=== PATIENT | male | born 1945 | race Caucasian/White ===

== ENCOUNTER 2018-05-19 09:46 | Inpatient (IN) | payer MEDICARE, OTHER ==
[2018-05-19] MEDS ORDERED: Ondansetron HCl/PF 4 MG/2 ML Vial ONE ×2 (10:07→10:08)
[2018-05-19] MEDS ORDERED: Morphine 2 MG/ML SYRINGE ONE (10:08)
[2018-05-19 10:15] LABS: #Basophils 0.1 thou/uL (0.0-0.2); #Eosinphils 0.2 thou/uL (0.0-0.7); #Lymphocytes 1.9 thou/uL (1.20-3.40); #Monocytes 0.9 thou/uL (0.11-0.59); #Neutrophils 4.2 thou/uL (1.40-6.50); %Basophils 1.5 % (0.0-1.0); %Eosinophils 2.3 % (0.0-10.0); %Monocytes 12.7 % (0.0-10.0); %Neutrophils 57.6 % (42.0-75.0); Hemoglobin 15.6 g/dL (14.0-18.0); Mean Corpuscular Hemoglobin 31.6 pg (27.0-31.0); Mean Corpuscular Volume 98.7 fL (78.0-98.0); Mean Platelet Volume 8.4 fL (7.4-10.4); Platelet Count 284 thou/uL (130-400); RBC Distribution Width 12.8 % (11.5-14.5); Red Blood Cell (RBC) Count 4.93 mill/uL (4.70-6.10); White Blood Cell (WBC) Count 7.3 thou/uL (4.8-10.8)
[2018-05-19 10:22] LABS: INR-International Normal Ratio 1.5; Prothrombin Time 18.1 SEC (12.0-14.7)
[2018-05-19 10:44] LABS: CKMB 2.8 ng/mL (0-6.6); Troponin I 0.025 ng/mL (< 0.028)
--- NOTE | 2018-05-19 10:47 | RAD ---
CHEST ONE VIEW: History: Cough. Atrial flutter. Hematemesis. Comparison: 08-10-15 FINDINGS: Cardiac silhouette is enlarged. Pulmonary vasculature is engorged with widespread reticular nodular a nd interstitial prominence throughout each lung. Mediastinum is midline with post-operative changes a nd aortic calcification. No lobar consolidation or evidence of pneumothorax. IMPRESSION: 1. Pulmonary vascular congestion. 2. Atherosclerosis. 3. Cardiomegaly. POS: [facility]
[2018-05-19] MEDS ORDERED: ISOVUE-370 76%-LOCM 1 ML ONE (10:49)
[2018-05-19 11:22] LABS: ALT (SGPT) 27 U/L (8-55); AST (SGOT) 43 U/L (5-34); Alkaline Phosphatase 106 U/L (40-150); Anion Gap 12 mmol/L (10-20); BUN (Urea Nitrogen) 20 mg/dL (8.4-25.7); Bilirubin, Total 0.7 mg/dL (0.2-1.2); Calc. Creatinine Clearance 0 mL/min (70-130); Calcium 9.3 mg/dL (7.8-10.44); Carbon Dioxide 24 mmol/L (23-31); Chloride 107 mmol/L (98-107); Estimated GFR-MDRD Greater than 90; Globulin 3.4 g/dL (2.4-3.5); Glucose 105 mg/dL (83-110); Potassium 4.4 mmol/L (3.5-5.1); Protein, Total 7.4 g/dL (5.8-8.1); Sodium 139 mmol/L (136-145)
--- NOTE | 2018-05-19 12:31 | CT ---
CT PULMONARY ANGIOGRMA WITH IV CONTRAST AND 3D POSTPROCESSING: HISTORY: Cough, hemoptysis, patient on Coumadin, chest pain, shortness of breath. FINDINGS: There is good contrast opacification of the pulmonary arterial vasculature without filling defect to suggest pulmonary embolism. Coronary artery calcifications are present. No evidence of aneurysmal d ilatation of the thoracic aorta is seen. No pericardial effusion is identified. There is a tiny left and a small right pleural effusion with adjacent patchy infiltrates in the lower lobes. No pneumoth oraces are seen. The tracheal bronchial tree is patent. There are degenerative changes in the spine . There is right-sided gynecomastia. IMPRESSION: 1. No CT evidence of pulmonary embolism. 2. Bilateral pleural effusions (right larger than left) with lower lobe infiltrates. POS: [facility]
[2018-05-19] MEDS ORDERED: Furosemide 40 MG/4 ML VIAL ONE (12:35)
[2018-05-19] MEDS ORDERED: Enoxaparin Sodium 100 MG/ML SYRINGE ONE (12:35)
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
[2018-05-19 14:01] LABS: Troponin I 0.028 ng/mL (< 0.028)
[2018-05-19 15:06] VITALS: BMI 28.0
[2018-05-19] MEDS ORDERED: Ondansetron ODT 4 MG TAB PO PRN (15:50)
[2018-05-19 16:33] LABS: Troponin I 0.024 ng/mL (< 0.028)
[2018-05-19] MEDS ORDERED: Docusate 100 MG CAP PO PRN (18:41)
[2018-05-19] MEDS ORDERED: Oxymetazoline HCl 0.05% (30 ML BOT) NS PRN (19:26)
[2018-05-19] MEDS: Ubidecarenone 50 MG CAP PO SCH (20:40)
[2018-05-19] MEDS: Acetaminophen 325 MG TAB PO PRN (20:41)
[2018-05-19] MEDS: Fish Oil 1,000 MG CAP PO SCH (20:41)
[2018-05-19] MEDS ORDERED: Furosemide 40 MG/4 ML VIAL SLOW IVP SCH (21:00)
[2018-05-19] MEDS ORDERED: Cranberry [Cranberry] 400 MG PO SCH (21:00)
[2018-05-19] MEDS ORDERED: Lisinopril 20 MG TAB PO SCH (21:15)
--- NOTE | 2018-05-19 21:17 | PDOC.EVN ---
Event Note - Event Note Event Note: Patient having BPs in the 160s/100s with HR in 120s. Family frustrated because they were told in the ER that they would be seen by cardiology once they got to the floor, but have not seen anyone all day. Also concerned about BP and HR. We discussed that the plan according to the day team was to get an ECHO in the morning and to call cardiology in the morning. I apologized for the miscommunication between providers and patient. Patient and expressed appreciation for clarification. Also gave lisinopril dose tonight for BP. Continue to monitor.
[2018-05-19 21:21] LABS: Hemoglobin 15.9 g/dL (14.0-18.0); Platelet Count 287 thou/uL (130-400)
[2018-05-20 05:21] LABS: INR-International Normal Ratio 1.5; Prothrombin Time 18.1 SEC (12.0-14.7)
[2018-05-20 05:25] LABS: Anion Gap 17 mmol/L (10-20); BUN (Urea Nitrogen) 15 mg/dL (8.4-25.7); Calc. Creatinine Clearance 109 mL/min (70-130); Calcium 9.3 mg/dL (7.8-10.44); Carbon Dioxide 22 mmol/L (23-31); Chloride 104 mmol/L (98-107); Estimated GFR-MDRD Greater than 90; Glucose 85 mg/dL (83-110); Potassium 3.9 mmol/L (3.5-5.1); Sodium 139 mmol/L (136-145)
[2018-05-20 05:30] LABS: #Basophils 0.1 thou/uL (0.0-0.2); #Eosinphils 0.1 thou/uL (0.0-0.7); #Lymphocytes 1.8 thou/uL (1.20-3.40); #Monocytes 0.9 thou/uL (0.11-0.59); #Neutrophils 5.1 thou/uL (1.40-6.50); %Basophils 0.7 % (0.0-1.0); %Eosinophils 1.5 % (0.0-10.0); %Lymphocytes 22.4 % (21.0-51.0); %Monocytes 11.7 % (0.0-10.0); %Neutrophils 63.7 % (42.0-75.0); Hemoglobin 15.4 g/dL (14.0-18.0); Mean Corpuscular HGB CONC 31.4 g/dL (32.0-36.0); Mean Corpuscular Hemoglobin 30.7 pg (27.0-31.0); Mean Corpuscular Volume 97.9 fL (78.0-98.0); Mean Platelet Volume 8.6 fL (7.4-10.4); Platelet Count 280 thou/uL (130-400); RBC Distribution Width 12.7 % (11.5-14.5); Red Blood Cell (RBC) Count 5.03 mill/uL (4.70-6.10)
[2018-05-20] MEDS ORDERED: Chloraseptic Spray 180 ml Bottle PO PRN (05:51)
[2018-05-20] MEDS ORDERED: Furosemide 40 MG/4 ML VIAL SLOW IVP SCH (06:00)
[2018-05-20] MEDS: Acetaminophen 325 MG TAB PO PRN ×2 (06:36→13:52)
--- NOTE | 2018-05-20 08:18 | PDOC.FM ---
- Subjective Subjective: 72 yo M here with concern of overload and A flutter seen at bedside this am. Over night his blood pressure was difficult to control and was typically in the 160s/100s. Today he denies chest pain, sob, palpitations, or any other new symptoms. He complains of continued cough with blood tinged sputum. - Objective MAR Reviewed: Yes Vital Signs & Weight: Vital Signs (12 hours) Temp Pulse Resp BP Pulse Ox 05/20/18 04:00 99.3 F 122 H 16 145/106 H 94 L 05/20/18 00:00 121 H 139/93 H Weight Weight 88.139 kg I&O: 05/19/18 05/20/18 05/21/18 06:59 06:59 06:59 Intake Total 860 Output Total 2049 Balance Result Diagrams: 05/20/18 04:47 05/20/18 04:47 EKG Reviewed by me: Yes (A flutter 2:1, no ST or T wave changes, Rate on tele in 120s) <Suleman Terrazas - Last Filed: 05/20/18 08:17> - Objective Vital Signs & Weight: Vital Signs (12 hours) Temp Pulse Resp BP Pulse Ox 05/20/18 09:18 122 H 125/98 H 05/20/18 09:02 125 H 156/95 H 05/20/18 08:10 98.5 F 123 H 18 149/110 H 92 L 05/20/18 04:00 99.3 F 122 H 16 145/106 H 94 L Weight Weight 88.139 kg I&O: 05/19/18 05/20/18 05/21/18 06:59 06:59 06:59 Intake Total 860 Output Total 2049 Balance -1189 Result Diagrams: 05/20/18 04:47 05/20/18 04:47 <Meliza Garcia - Last Filed: 05/20/18 14:30> Phys Exam - Physical Examination Constitutional: NAD HEENT: PERRLA, moist MMs Neck: no JVD Crackles in L base Tachycardic, no murmur Gastrointestinal: soft, non-tender, no distention Tr pitting edema to mid tibia b/l Neurological: non-focal, normal sensation, moves all 4 limbs Psychiatric: normal affect, A&O x 3 Skin: no rash, normal turgor <NiniSuleman - Last Filed: 05/20/18 08:17> Dx/Plan (1) Atrial flutter with rapid ventricular response Code(s): I48.92 - UNSPECIFIED ATRIAL FLUTTER Status: Acute (2) CHF (congestive heart failure) Code(s): I50.9 - HEART FAILURE, UNSPECIFIED Status: Acute (3) Anticoagulant long-term use Code(s): Z79.01 - FDC (CURRENT) USE OF ANTICOAGULANTS Status: Acute (4) Elevated brain natriuretic peptide (BNP) level Code(s): R79.89 - OTHER SPECIFIED ABNORMAL FINDINGS OF BLOOD CHEMISTRY Status : Acute (5) S/P AVR (aortic valve replacement) Code(s): Z95.2 - PRESENCE OF PROSTHETIC HEART VALVE Status: Acute (6) HTN (hypertension) Code(s): I10 - ESSENTIAL (PRIMARY) HYPERTENSION Status: Acute (7) Pleural effusion Code(s): J90 - PLEURAL EFFUSION, NOT ELSEWHERE CLASSIFIED Status: Acute - Plan Plan: Atrial flutter w/RVR - EKG is consistent with 2:1 block. Pt is hemodynamically stable - Giving one time dose of dilt and will consider starting drip based on response - Consult cardiology and monitor on tele CHF - Pt does exhibit some signs of mild overload. This is most likely related to decreased output due to increased heart rate. - Pt is net negative 1L after lasix. Appears to be euvolemic today, will dc lasix Pulmonary effusion b/l - Likely related to decreased cardiac output. This is small and does not need drained at this time. O2 sats are normal and pt has no SOB Hx of prosthetic aortic valve - Continue home warfarin, currently sub therapeutic INR of 1.5 - Daily INR with adjustment in dose as needed HTN - Elevated over night, however pt missed meds - Continue home metoprolol, lisinopril Hx of CVA - Continue ASA, Statin Parkinsons - Continue Carbidopa-levodopa Depression/Anxiety - Continue Sertraline Dispo: Pt is currently stable, continue care on tele. Will work to control rate and await recommendations from cardiology. Length of stay greater than 48 hours. <Suleman Terrazas - Last Filed: 05/20/18 08:17> Attending Addendum - Attending Addendum Date/Time: 05/20/18 4932 I personally evaluated the patient and discussed the management with Dr. Terrazas I agree with the History, Examination, Assessment and Plan documented above with any addition or exceptions noted below. 72 yo male with multiple medical conditions admitted for acute HF and a flutter with RVR HD#1 Patient states he is still feeling weak. No CP or pressure. Still with cough and blood tinged sputum. VS reviewed. Labs reviewed. Imaging reviewed. Acute HF with bilateral pleural effusions: Continue Lasix and strict IOs. Etiology likely disrrhythmia. No respiratory distress. A flutter with RVR: Place on CCB drip. Cards consulted. Has been ablated in the past 3 years ago but due to frequent PVCs per patient. First episode by patient recall. Cards consulted. On anticoagulant due to prosthetic heart valve. ECHO pending. Trop negative. Subtherapuetic INR: Need goal of at least 2.0. Per history hemoptysis appears mild. Only streaking noted, therefore could potentially increase Warfarin dose. Hemoptysis: Mild. Only streaking. Evaluated risk for TB exposure - low. Procal not suggestive of infectious source. Potentially due to anticoagulant/ antiplatelet vs pleural edema. Will monitor. Will send sputum studies. Pulm consult as needed. Continue to monitor closely. Cards consult today. Pulm as needed. Sandro <Meliza Garcia - Last Filed: 05/20/18 14:30>
[2018-05-20] MEDS: Lisinopril 20 MG TAB PO SCH (09:10)
[2018-05-20] MEDS: Ubidecarenone 50 MG CAP PO SCH ×2 (09:11→20:36)
[2018-05-20] MEDS: Aspirin 81 mg Enteric Coated Tablet PO SCH (09:11)
[2018-05-20] MEDS: Fish Oil 1,000 MG CAP PO SCH ×2 (09:11→20:36)
[2018-05-20] MEDS: Diltiazem 125 MG in Sodium Chloride 0.9% 100 ML IVPB SCH ×2 (11:36→20:36)
--- NOTE | 2018-05-20 15:17 | CON ---
DATE OF CONSULTATION: 05/20/2018 REASON FOR CONSULTATION: Atrial flutter. HISTORY OF PRESENT ILLNESS: Mr. Snyder is a pleasant 72-year-old gentleman who is a patient of Dr. Orlando Brandon. He has a history of AVR and is on Coumadin therapy. He states over the last week, he developed shortness of breath. He has had chest congestion in addition to hemoptysis. He states the hemoptysis lasted for a day or two, then resolved. Then, recurred on Friday. He was seen and evalu ated by his PCP and recommended hospital admission. His heart rate has been elevated in the 1-teens to 120s. Most recent EKG suggested atrial flutter. He does have a previous history of PVC ablation. He recently underwent a CT scan in the ER that did show bilateral pleural effusions with a left lower lobe infiltrates. PAST MEDICAL HISTORY: BPH, hypertension, hyperlipidemia, previous CVA, hernia repair. FAMILY HISTORY: Negative for CAD. SOCIAL HISTORY: No current tobacco or alcohol use. CURRENT MEDICATIONS: Include aspirin, lisinopril, metoprolol, sertraline, Coumadin, omega 3 fatty ac id, and testosterone. REVIEW OF SYSTEMS: Ten point review of system reviewed as above, otherwise negative. PHYSICAL EXAMINATION: VITAL SIGNS: Blood pressure 125/98, pulse 122, respirations 20. GENERAL: Patient is a pleasant male who is in no acute distress. The patient appears his stated age . NEUROLOGIC: The patient is alert and oriented times 3 with no focal neurologic deficits. HEENT: Sclerae without icterus. Mouth has moist mucous membranes with normal pallor. NECK: No JVD. Carotid upstroke brisk. No bruits bilaterally. LUNGS: Clear to auscultation with unlabored respirations. BACK: No scoliosis or kyphosis. CARDIAC: Irregularly irregular and tachycardic with click present. ABDOMEN: Soft, nontender, nondistended. No peritoneal signs present. No hepatosplenomegaly. No ab normal striae. EXTREMITIES: 2+ femoral and 2+ dorsalis pedis pulses. No cyanosis, clubbing, or edema. SKIN: No gross abnormalities. PERTINENT LABS: Hemoglobin 15.2, creatinine 0.77. IMPRESSION: 1. Atrial flutter. 2. Tachycardia. 3. Hemoptysis. RECOMMENDATIONS: Mr. Snyder's most recent echo in the office suggest normal LVEF. He may have a compo nent of diastolic dysfunction. This in combination with atrial flutter may have caused CHF type symp toms. It is unusual, though to have michael hemoptysis despite being on Coumadin. We may consider a p ulmonary consultation. I would also recommend EP consultation to assess for atrial flutter and poten tial ablation. Continue IV Cardizem. Review echo.
[2018-05-20] MEDS: Warfarin Sodium 7.5 MG TAB PO SCH (18:12)
[2018-05-21] MEDS: Acetaminophen 325 MG TAB PO PRN ×3 (00:27→16:01)
[2018-05-21 05:34] LABS: #Eosinphils 0.2 thou/uL (0.0-0.7); #Lymphocytes 1.9 thou/uL (1.20-3.40); #Monocytes 1.1 thou/uL (0.11-0.59); #Neutrophils 5.1 thou/uL (1.40-6.50); %Basophils 0.6 % (0.0-1.0); %Eosinophils 1.8 % (0.0-10.0); %Lymphocytes 22.8 % (21.0-51.0); %Monocytes 13.4 % (0.0-10.0); %Neutrophils 61.5 % (42.0-75.0); Hemoglobin 15.9 g/dL (14.0-18.0); Mean Corpuscular HGB CONC 32.8 g/dL (32.0-36.0); Mean Corpuscular Hemoglobin 32.1 pg (27.0-31.0); Mean Corpuscular Volume 97.9 fL (78.0-98.0); Mean Platelet Volume 8.7 fL (7.4-10.4); Platelet Count 256 thou/uL (130-400); RBC Distribution Width 12.6 % (11.5-14.5); Red Blood Cell (RBC) Count 4.93 mill/uL (4.70-6.10); White Blood Cell (WBC) Count 8.3 thou/uL (4.8-10.8)
[2018-05-21 05:39] LABS: INR-International Normal Ratio 1.4
[2018-05-21 05:43] LABS: Anion Gap 13 mmol/L (10-20); BUN (Urea Nitrogen) 13 mg/dL (8.4-25.7); Calc. Creatinine Clearance 105 mL/min (70-130); Calcium 9.1 mg/dL (7.8-10.44); Carbon Dioxide 25 mmol/L (23-31); Chloride 105 mmol/L (98-107); Estimated GFR-MDRD Greater than 90; Glucose 91 mg/dL (83-110); Potassium 3.8 mmol/L (3.5-5.1); Sodium 139 mmol/L (136-145)
[2018-05-21] MEDS: Lisinopril 20 MG TAB PO SCH (08:38)
[2018-05-21] MEDS: Ubidecarenone 50 MG CAP PO SCH ×2 (08:38→20:28)
[2018-05-21] MEDS: Aspirin 81 mg Enteric Coated Tablet PO SCH (08:38)
[2018-05-21] MEDS: Fish Oil 1,000 MG CAP PO SCH ×2 (08:38→20:29)
--- NOTE | 2018-05-21 11:17 | PDOC.FM ---
- Subjective Subjective: Pt seen at bedside this morning. He states that he is feeling better and he is breathing easier. He has continued bloody sputum periodically. There were no acute events over night. HR was generally controlled on dilt drip - Objective MAR Reviewed: Yes Vital Signs & Weight: Vital Signs (12 hours) Temp Pulse Resp BP BP Pulse Ox 05/21/18 08:40 98.0 F 102 H 16 135/86 96 05/21/18 08:38 135/86 05/21/18 04:00 97.6 F 72 16 119/62 92 L Weight Weight 87.543 kg I&O: 05/20/18 05/21/18 05/22/18 06:59 06:59 06:59 Intake Total 860 1989 Output Total 2049 1350 Balance -1190 640 Result Diagrams: 05/21/18 04:58 05/21/18 04:58 <Suleman Terrazas - Last Filed: 05/21/18 11:14> - Objective Vital Signs & Weight: Weight Weight 87.543 kg Result Diagrams: 05/23/18 05:06 05/23/18 05:06 <Meliza Garcia - Last Filed: 05/25/18 15:08> Phys Exam - Physical Examination Constitutional: NAD HEENT: PERRLA Neck: no JVD mild rhonchi at L base, Improved from previous exam Tachycardic, irregular Gastrointestinal: soft, non-tender, no distention Musculoskeletal: no edema Neurological: non-focal, moves all 4 limbs Psychiatric: normal affect, A&O x 3 Skin: no rash <Suleman Terrazas - Last Filed: 05/21/18 11:14> Dx/Plan (1) Atrial flutter with rapid ventricular response Code(s): I48.92 - UNSPECIFIED ATRIAL FLUTTER Status: Acute (2) CHF (congestive heart failure) Code(s): I50.9 - HEART FAILURE, UNSPECIFIED Status: Acute (3) Anticoagulant long-term use Code(s): Z79.01 - IMPORT DISPATCHER (CURRENT) USE OF ANTICOAGULANTS Status: Acute (4) Elevated brain natriuretic peptide (BNP) level Code(s): R79.89 - OTHER SPECIFIED ABNORMAL FINDINGS OF BLOOD CHEMISTRY Status : Acute (5) S/P AVR (aortic valve replacement) Code(s): Z95.2 - PRESENCE OF PROSTHETIC HEART VALVE Status: Acute (6) HTN (hypertension) Code(s): I10 - ESSENTIAL (PRIMARY) HYPERTENSION Status: Acute (7) Pleural effusion Code(s): J90 - PLEURAL EFFUSION, NOT ELSEWHERE CLASSIFIED Status: Acute - Plan Plan: Atrial flutter w/RVR - EKG is consistent with 2:1 block. Pt is hemodynamically stable - rate reasonably well controlled with dilt drip. EP consult pending. Pt is NPO in anticipation of procedure - Cards following, monitor on tele CHF - Echo pending. Off of lasix. Pulmonary effusion b/l - Unclear etiology, clinically improving. Will get CXR today - pt has continued need for 95% O2 Hemoptysis - Due to persisting symptoms will consult pulm. - Sputum culture and quant gold pending Hx of prosthetic aortic valve - Continue home warfarin, currently sub therapeutic INR of 1.5 - Daily INR with adjustment in dose as needed HTN - controlled - Continue home metoprolol, lisinopril Hx of CVA - Continue ASA, Statin Parkinsons - Continue Carbidopa-levodopa Depression/Anxiety - Continue Sertraline Dispo: Pt is currently stable, continue care on tele. Work up pending for etiology of hemoptysis. Length of stay greater than 48 hours. <Suleman Terrazas - Last Filed: 05/21/18 11:14> Attending Addendum - Attending Addendum Date/Time: 05/21/18 8741 I personally evaluated the patient and discussed the management with Dr. Terrazas I agree with the History, Examination, Assessment and Plan documented above with any addition or exceptions noted below. 72 yo male with multiple medical conditions admitted for acute HF and a flutter with RVR HD#2 HR better controlled on CCB drip. Has been evaluated by cards. Will have EP consult today. Cards and patient family remain concerned with continued hemoptysis. However noted to be improving. Only strikes of blood present. No fever or chills. Still requiring supplemental O2. VS reviewed. Labs reviewed. Acute HF with bilateral pleural effusions: Continue Lasix and strict IOs. Etiology likely disrrhythmia. No respiratory distress. But remains on supplemental O2. Consider repeat CXR if continues to require O2. ECHO pending. A flutter with RVR: Remains on CCB drip. Cards following. First episode of a flutter by patient recall. On anticoagulant due to prosthetic heart valve but suptherapuetic. ECHO pending. Trop negative. EP cards to see later today. Subtherapuetic INR: Need goal of at least 2.0. Per history hemoptysis appears mild. Will increase Warfarin dose. Hemoptysis: Mild. Only streaking. Evaluated risk for TB exposure - low, last TB test 2016. 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 Procal not suggestive of infectious source. Potentially due to anticoagulant/antiplatelet vs pleural edema. Will monitor. Will send sputum studies. Pulm consult as needed. Continue to monitor closely. Sandro <Meliza Garcia - Last Filed: 05/25/18 15:08>
--- NOTE | 2018-05-21 13:55 | CON ---
DATE OF CONSULTATION: 05/21/2018 HISTORY OF PRESENT ILLNESS: Mr. Snyder is very pleasant 72-year-old male. He presented with atrial flutter and hemoptysis. He is in isolation room now. He is feeling better. He was coughing up bright blood when he came in and now is coughing up dark blood. He has been seen by Cardiology and Electrophysiology. PAST MEDICAL HISTORY: Remarkable for, 1. Hypertension. 2. History of a cerebrovascular accident. 3. History of aortic valve replacement, mechanical, on Coumadin. 4. History of lipid disorder. 5. History of a herniorrhaphy. SOCIAL HISTORY: Non-smoker, nondrinker. ALLERGIES: Reports an allergy to PENICILLIN. FAMILY HISTORY: Negative for lung disease in early age. REVIEW OF SYSTEMS: 10 point system review completed, otherwise negative. PHYSICAL EXAMINATION: VITAL SIGNS: He is afebrile, heart rate is 102, respiratory rate 16, blood pressure 135/86. HEENT: Pupils are equal. Sclerae are anicteric. NECK: Supple. LUNGS: Remarkable for very fine crackles at his bases. HEART: Regular rhythm. S1 and S2 are audible. He has mechanical S2. ABDOMEN: Soft and nontender. EXTREMITIES: No clubbing, cyanosis, or edema. NEUROLOGIC: Grossly nonfocal. CT of his chest has been reviewed. He has bilateral pleural effusions, right greater than left. They are small. He has alveolar infiltrates at both lung bases. First chest x-ray has been reviewed and is consistent with interstitial pulmonary edema with early alveolar edema at the lung bases. Second chest radiograph done today shows significant improvement. IMPRESSION: Alveolar hemorrhage associated with congestive heart failure and atrial flutter. I would not withhold warfarin for him. I would discontinue TB isolation. His radiograph is not at all consistent with reactivation of tuberculosis. Quantiferon does not need to be done. Given the improvement of his hemoptysis and his improvement of his radiograph, I would treat his cardiac issues. I have discussed the above with both the shafting cleaner, Dr. Figueroa and Dr. Brandon, his normal vp strategic planning. This is a 50 minute consult, with greater than 50% of time spent on unit with coordination of care. [facility]
--- NOTE | 2018-05-21 15:28 | RAD ---
TWO VIEWS CHEST: DATE: 05/21/18. PROVIDED CLINICAL HISTORY: Effusion. FINDINGS: Comparison is made with the chest CT performed 05/19/2018. The cardiac silhouette remains enlarged. Median sternotomy changes and atherosclerosis are redemonstrated. The pleural effusions seen on prio r CT examination are not definitely apparent, with sharp margins to the lateral and posterior costoph renic angles. Prosthetic cardiac valve is demonstrated. No focal consolidation or pneumothorax appa rent. IMPRESSION: Cardiomegaly without radiographic evidence for an acute cardiopulmonary process. POS: [facility]
[2018-05-21] MEDS: Warfarin Sodium 7.5 MG TAB PO SCH (16:01)
--- NOTE | 2018-05-21 17:17 | PDOC.CTH ---
Cardiology Progress Note - Subjective He feels much better today. Breathing back to baseline. - Objective Vital Signs Temp Pulse Resp BP BP Pulse Ox 05/21/18 08:40 98.0 F 102 H 16 135/86 96 05/21/18 08:38 135/86 05/21/18 08:00 96 Weight 193 lb 05/20/18 05/21/18 05/22/18 06:59 06:59 06:59 Intake Total 860 1989 Output Total 2049 1350 Balance -1190 640 - Physical Examination General/Neuro: alert & oriented x3, NAD Neck: no JVD present Lungs: CTA, unlabored respirations Heart: RRR Abdomen: NT/ND Extremities: other: (no edema) - Telemetry Telemetry Rhythm: Aflutter HR 80's. - Labs Result Diagrams: 05/21/18 04:58 05/21/18 04:58 Troponin/CKMB CK-MB (CK-2) 2.8 ng/mL (0-6.6) 05/19/18 10:02 Troponin I 0.024 ng/mL (< 0.028) 05/19/18 16:04 - Assessment/Plan 1. Atrial flutter variable AV block 2. Hemoptysis, likely upper airway. 3. Acute on chronic diastolic heart failure, improved with IV diuresis. 4. Hx of PVT ablation 5. AVR Mechanical, On-X valve 6. Hx of CVA PLAN: - He has an On-X valve in pace and FDA recommendation is for INR to be between 1.5 to 2.0 but since he had a stroke while on therapeutic INR will recommend 2.0 to 3.0 for now. - EP with plan to do aflutter ablation tomorrow. - Continue diltiazem drip for rate control for now.
[2018-05-21] MEDS: Diltiazem 125 MG in Sodium Chloride 0.9% 100 ML IVPB SCH (19:40)
--- NOTE | 2018-05-22 00:26 | CON ---
DATE OF CONSULTATION: 05/21/2018 ELECTROPHYSIOLOGY CONSULTATION REPORT REFERRING PHYSICIAN: Emmanuel White M.D. I am seeing Mr. Snyder at our [facility] telemetry floor as an electrophysiology service consultant. His problems are: 1. Newly found atrial flutter with rapid ventricular rates. 2. Admission with CHF/fluid overload, responding to diuretics. 3. Hemoptysis, possibly related to alveolar congestion to minor degree. 4. 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 5. History of mechanical aortic valve replacement, on chronic Coumadin therapy, in the past. 6. Prior history of mild LV dysfunction, 45%-50%, in the past. ALLERGIES: PENICILLINS. MEDICATIONS AT HOME: Included sertraline, lisinopril, aspirin, metoprolol succinate twice a da y, warfarin 75 mg daily or as directed, docusate, testosterone, omega 3 fatty acid, and ubidecarenone . SUBJECTIVE: Mr. Snyder is here in the hospital, hence development of hemoptysis. He was evaluated by his primary care physician, also was noted to be in atrial flutter. He also had scary episodes of dy spnea with minimal exertion like walking to his shed. He did not note as though major orthopnea or l ower extremity edema. Nevertheless, his symptoms have gotten better after rate control for his atria l flutter and diuretic therapy. He still continues in atrial flutter, on diltiazem though. His hemo ptysis is only for a day or two and had recurrences later. He has some left lower lobe infiltrates o nly and thought to be atelectasis or congestion as per mechanical technical service specialist. REVIEW OF SYSTEMS: Rest of 12-point system unremarkable. PAST MEDICAL HISTORY: As above. SOCIAL HISTORY: Patient denies smoking, ETOH, or drug abuse. He is . His is at the bed side. FAMILY HISTORY: Noncontributory. OBJECTIVE DATA: VITAL SIGNS: Blood pressure 135/86, heart rate 102, respirations 16, temperature 98 degrees Fahrenhe it. GENERAL: He is alert and oriented man in no apparent distress. NECK: Supple. Jugular veins not distended. CHEST: Coarse without crackles. CARDIAC: Heart sounds are regular, but tachycardic. No murmur is heard, but mechanical heart sounds are appreciated. PMI is not distended. Midsternal scar is well healed. ABDOMEN: Benign. Bowel sounds positive. EXTREMITIES: Lower extremities without edema, clubbing, or cyanosis. Pulses are adequate. NEUROLOGIC: Patient nonfocal. MUSCULOSKELETAL EXAM: Without joint swelling or deformity. SKIN: Without rash. DATABASE: EKGs reviewed revealing atrial flutter 2:1 AV block. Subsequent EKG on diltiazem dose rev ealed typically appearing atrial flutter with rate of 96 beats per minute with nonspecific T-wave gill nges laterally. LABORATORY DATA: Sodium 139, potassium 3.8, BUN is 13, creatinine is 0.79. Troponin I is 0.028 and 0.024. White count is 8.3, hemoglobin 15.9, platelet count is 256. The CT of the chest again reveal s bilateral pleural effusions, right larger than left, with lower lobe infiltrates. No evidence of p ulmonary embolism. ASSESSMENT AND PLAN: Mr. Snyder is a very pleasant 72-year-old man with a prior history of premature v entricular contractions, mild reduced left ventricular systolic function in the past. He also had a PVC ablation effectively eliminating these. He also has a mechanical aortic valve, on chronic Coumad in therapy. He was admitted with slightly subtherapeutic INRs and despite hemoptysis and newly found atrial flutter was documented. He did need some Lasix for diuresis, possibly related to rapid ventr icular response-related diastolic heart failure. Currently, doing fair on diltiazem. I discussed the future treatment plans about his atrial flutter. I think BENNIE-guided ablation therapy would be very reasonable. I detailed option of cardiover shalonda, possible rhythm medication as well. They agree with the ablation option, and risks and benefit s of this detail. At this point, I would continue Coumadin therapy and subtherapeutic for the mechan ical valve. We will schedule for a possible ablation tomorrow. Thank you again for allowing me to participate in the care of this patient.
[2018-05-22] MEDS: Diltiazem 125 MG in Sodium Chloride 0.9% 100 ML IVPB SCH (03:30)
[2018-05-22 05:38] LABS: INR-International Normal Ratio 1.6; Prothrombin Time 18.9 SEC (12.0-14.7)
[2018-05-22 05:46] LABS: Anion Gap 13 mmol/L (10-20); BUN (Urea Nitrogen) 15 mg/dL (8.4-25.7); Calc. Creatinine Clearance 116 mL/min (70-130); Calcium 8.8 mg/dL (7.8-10.44); Carbon Dioxide 23 mmol/L (23-31); Chloride 106 mmol/L (98-107); Estimated GFR-MDRD Greater than 90; Glucose 93 mg/dL (83-110); Potassium 3.7 mmol/L (3.5-5.1); Sodium 138 mmol/L (136-145)
[2018-05-22 06:14] LABS: Eosinophils 2 % (0-10); Hemoglobin 14.9 g/dL (14.0-18.0); Lymphocytes 27 % (21-51); MDiff Complete? YES; Mean Corpuscular HGB CONC 31.4 g/dL (32.0-36.0); Mean Corpuscular Hemoglobin 30.9 pg (27.0-31.0); Mean Corpuscular Volume 98.4 fL (78.0-98.0); Mean Platelet Volume 8.8 fL (7.4-10.4); Monocytes 2 % (0-10); Neutrophil 69 % (42-75); PLT Morphology Comment Appears Adequate; Platelet Count 257 thou/uL (130-400); RBC Distribution Width 12.6 % (11.5-14.5); RBC Morphology Normal; Red Blood Cell (RBC) Count 4.81 mill/uL (4.70-6.10)
--- NOTE | 2018-05-22 08:47 | PDOC.FM ---
- Subjective Subjective: Pt seen at bedside this morning, sleeping comfortably. He is scheduled for an ablation with Dr Figueroa today. Pt has no specific complaints and states that his cough has greatly improved, however he has continued blood tinged sputum. He denies new symptoms. There were no acute events over night. - Objective MAR Reviewed: Yes Vital Signs & Weight: Weight Weight 87.543 kg I&O: 05/21/18 05/22/18 05/23/18 06:59 06:59 06:59 Intake Total 1989 200 Output Total 1350 150 Balance 640 50 Result Diagrams: 05/22/18 05:01 05/22/18 05:01 <Suleman Terrazas - Last Filed: 05/22/18 08:44> - Objective Vital Signs & Weight: Vital Signs (12 hours) Temp Pulse Resp BP BP BP Pulse Ox 05/22/18 17:54 135/86 05/22/18 16:15 98.4 F 75 16 138/77 95 05/22/18 08:40 98.9 F 74 18 113/60 96 Weight Weight 87.543 kg I&O: 05/21/18 05/22/18 05/23/18 06:59 06:59 06:59 Intake Total 1989 200 Output Total 1350 150 Balance 640 50 Result Diagrams: 05/22/18 05:01 05/22/18 05:01 <Alexys Hernandez - Last Filed: 05/22/18 19:35> Phys Exam - Physical Examination Constitutional: NAD HEENT: moist MMs Neck: no nodes, no JVD Respiratory: clear to auscultation bilateral Cardiovascular: no significant murmur Irregular and tachycardic Gastrointestinal: soft, non-tender Musculoskeletal: no edema Neurological: non-focal, normal sensation, moves all 4 limbs Psychiatric: normal affect, A&O x 3 Skin: no rash <Suleman Terrazas - Last Filed: 05/22/18 08:44> Dx/Plan (1) Atrial flutter with rapid ventricular response Code(s): I48.92 - UNSPECIFIED ATRIAL FLUTTER Status: Acute (2) CHF (congestive heart failure) Code(s): I50.9 - HEART FAILURE, UNSPECIFIED Status: Acute (3) Anticoagulant long-term use Code(s): Z79.01 - [employer]IL[employer]ER (CURRENT) USE OF ANTICOAGULANTS Status: Acute (4) Elevated brain natriuretic peptide (BNP) level Code(s): R79.89 - OTHER SPECIFIED ABNORMAL FINDINGS OF BLOOD CHEMISTRY Status : Acute (5) S/P AVR (aortic valve replacement) Code(s): Z95.2 - PRESENCE OF PROSTHETIC HEART VALVE Status: Acute (6) HTN (hypertension) Code(s): I10 - ESSENTIAL (PRIMARY) HYPERTENSION Status: Acute (7) Pleural effusion Code(s): J90 - PLEURAL EFFUSION, NOT ELSEWHERE CLASSIFIED Status: Acute - Plan Plan: Atrial flutter w/RVR - EKG is consistent with 2:1 block. Pt is hemodynamically stable with reasonable rate control on dilt drip. - EP plans to do ablation this am. Will look for recommendations following procedure - Cards following, monitor on tele CHF - Echo pending. - Euvolemic Pulmonary effusion b/l - Likely due to pulmonary congestion - pt has continued need for 95% O2 - Pulm following case Hemoptysis - Most likely alveolar hemorrhage secondary to vascular congestion. - Pulm following Hx of prosthetic aortic valve - Continue home warfarin, currently sub therapeutic INR of 1.5 - Adjusting warfarin to 8 today. Recheck INR in am HTN - controlled - Continue home metoprolol, lisinopril Hx of CVA - Continue ASA, Statin Parkinsons - Continue Carbidopa-levodopa Depression/Anxiety - Continue Sertraline Dispo: Pt is currently stable, continue care on tele. Length of stay pending EP recommendations <uSleman Terrazas - Last Filed: 05/22/18 08:44> (1) CHF (congestive heart failure) Code(s): I50.9 - HEART FAILURE, UNSPECIFIED Status: Acute (2) Anticoagulant long-term use Code(s): Z79.01 - TAIL[employer]ER (CURRENT) USE OF ANTICOAGULANTS Status: Acute (3) Elevated brain natriuretic peptide (BNP) level Code(s): R79.89 - OTHER SPECIFIED ABNORMAL FINDINGS OF BLOOD CHEMISTRY Status : Acute (4) S/P AVR (aortic valve replacement) Code(s): Z95.2 - PRESENCE OF PROSTHETIC HEART VALVE Status: Acute (5) HTN (hypertension) Code(s): I10 - ESSENTIAL (PRIMARY) HYPERTENSION Status: Acute <Alexys Hernandez - Last Filed: 05/22/18 19:35> Attending Addendum - Attending Addendum Date/Time: 05/22/181933 I personally evaluated the patient and discussed the management with Dr. Terrazas. I agree with and repeated the History, Examination, Assessment and Plan documented above with any addition or exceptions noted below. s/p successful ablation. Observation overnight and possible d/c in AM. <Alexys Hernandez - Last Filed: 05/22/18 19:35>
[2018-05-22] MEDS ORDERED: PROPOFOL 200 MG/20 ML VIAL ONE (10:11)
[2018-05-22] MEDS ORDERED: Lidocaine 1% (PF) 30 ML VIAL ONE (10:20)
--- NOTE | 2018-05-22 10:34 | PRG ---
DATE OF SERVICE: 05/22/2018 This morning, he is better, still has intermittent hemoptysis. PHYSICAL EXAMINATION: VITAL SIGNS: Sats are 95 on room air, temperature 98, pulse 83, blood pressure 126/96. CHEST: Chest revealed minimal rhonchi. CARDIAC: Normal S1, S2. ABDOMEN: Soft, no masses. LABORATORY DATA: Creatinine 1.6. His electrolytes are normal, H&H is unremarkable. His x-ray shows cardiomegaly and cephalization. IMPRESSION: 1. Hemoptysis. 2. Bronchitis nothing to suspect tuberculosis. 3. On anticoagulation, Coumadin. 4. Atrial flutter. PLAN: EP to see the patient for ablation today. Otherwise, monitor PT and INR. Supportive care. No reason to start an antibiotic at this stage. Continue nocturnal CPAP. Pulmonary will follow.
[2018-05-22] MEDS ORDERED: Heparin 10,000 UNITS/1 ML VIAL ONE (10:47)
[2018-05-22] MEDS ORDERED: PROPOFOL 40 ML ONE ×2 (12:00→13:16)
--- NOTE | 2018-05-22 13:00 | PDOC.CTH ---
Cardiology Progress Note - Subjective No new issues. Doing well. - Objective Vital Signs Temp Pulse Resp BP Pulse Ox 05/22/18 08:40 98.9 F 74 18 113/60 96 Weight 193 lb 05/21/18 05/22/18 05/23/18 06:59 06:59 06:59 Intake Total 1989 200 Output Total 1350 150 Balance 640 50 - Physical Examination General/Neuro: alert & oriented x3, NAD Neck: no JVD present Lungs: unlabored respirations Heart: other: (Irregular) Abdomen: NT/ND Extremities: + edema B (no edema) - Telemetry Telemetry Rhythm: Aflutter HR 90-120 - Labs Result Diagrams: 05/22/18 05:01 05/22/18 05:01 Troponin/CKMB CK-MB (CK-2) 2.8 ng/mL (0-6.6) 05/19/18 10:02 Troponin I 0.024 ng/mL (< 0.028) 05/19/18 16:04 - Assessment/Plan 1. Atrial flutter variable AV block 2. Hemoptysis, likely upper airway. 3. Acute on chronic diastolic heart failure, improved with IV diuresis. 4. Hx of PVT ablation 5. AVR Mechanical, On-X valve 6. Hx of CVA PLAN: - On-X valve in pace and FDA recommendation is for INR to be between 1.5 to 2.0 but since he had a stroke while on therapeutic INR will recommend 2.0 to 3.0 for now. - For ablation later today.
[2018-05-22] MEDS ORDERED: DOPamine 400 MG/D5W 250 ML 250 ML ONE (13:17)
[2018-05-22] MEDS: Acetaminophen 325 MG TAB PO PRN (15:29)
[2018-05-22] MEDS ORDERED: Warfarin Sodium 2 MG TAB PO SCH (17:00)
[2018-05-22] MEDS: Aspirin 81 mg Enteric Coated Tablet PO SCH (17:53)
[2018-05-22] MEDS: Fish Oil 1,000 MG CAP PO SCH ×2 (17:54→20:35)
[2018-05-22] MEDS: Lisinopril 20 MG TAB PO SCH (17:54)
[2018-05-22] MEDS: Ubidecarenone 50 MG CAP PO SCH ×2 (17:56→20:35)
[2018-05-23 05:31] LABS: INR-International Normal Ratio 1.8; Prothrombin Time 21.2 SEC (12.0-14.7)
[2018-05-23 05:41] LABS: Anion Gap 12 mmol/L (10-20); BUN (Urea Nitrogen) 16 mg/dL (8.4-25.7); Calc. Creatinine Clearance 112 mL/min (70-130); Calcium 8.8 mg/dL (7.8-10.44); Carbon Dioxide 25 mmol/L (23-31); Chloride 106 mmol/L (98-107); Estimated GFR-MDRD Greater than 90; Glucose 90 mg/dL (83-110); Potassium 3.8 mmol/L (3.5-5.1); Sodium 139 mmol/L (136-145)
--- NOTE | 2018-05-23 06:51 | PDOC.FM ---
- Subjective Subjective: NAEO. Patient states he feels well this AM. Says hemoptysis is improving and is now darker in color and loose. Denies coughing up any clots. States that EP, Dr. Figueroa cleared him for discharge today. Will await recs from PA before discharge. - Objective MAR Reviewed: Yes Vital Signs & Weight: Vital Signs (12 hours) Temp Pulse Resp BP Pulse Ox 05/23/18 04:04 98.3 F 70 14 138/79 97 05/23/18 03:59 95 05/22/18 19:44 97.8 F 79 18 144/91 H 95 Weight Weight 87.543 kg I&O: 05/21/18 05/22/18 05/23/18 06:59 06:59 06:59 Intake Total 1989 200 360 Output Total 1350 150 Balance 640 50 360 Result Diagrams: 05/23/18 05:06 05/23/18 05:06 Phys Exam - Physical Examination Constitutional: NAD HEENT: sclera anicteric Neck: supple, full ROM Respiratory: no wheezing, no rales, no rhonchi, clear to auscultation bilateral Cardiovascular: RRR, no significant murmur Gastrointestinal: positive bowel sounds Musculoskeletal: no edema Neurological: non-focal, moves all 4 limbs Psychiatric: normal affect, A&O x 3 Skin: no rash, normal turgor Dx/Plan (1) Anticoagulant long-term use Code(s): Z79.01 - NURSING HOME (CURRENT) USE OF ANTICOAGULANTS Status: Acute (2) Atrial flutter Code(s): I48.92 - UNSPECIFIED ATRIAL FLUTTER Status: Acute (3) Atrial flutter with rapid ventricular response Code(s): I48.92 - UNSPECIFIED ATRIAL FLUTTER Status: Acute (4) CHF (congestive heart failure) Code(s): I50.9 - HEART FAILURE, UNSPECIFIED Status: Acute (5) Elevated AST (SGOT) Code(s): R74.0 - NONSPEC ELEV OF LEVELS OF TRANSAMNS & LACTIC ACID DEHYDRGNSE Status: Acute (6) Elevated brain natriuretic peptide (BNP) level Code(s): R79.89 - OTHER SPECIFIED ABNORMAL FINDINGS OF BLOOD CHEMISTRY Status : Acute (7) Pleural effusion Code(s): J90 - PLEURAL EFFUSION, NOT ELSEWHERE CLASSIFIED Status: Acute (8) S/P AVR (aortic valve replacement) Code(s): Z95.2 - PRESENCE OF PROSTHETIC HEART VALVE Status: Acute (9) HTN (hypertension) Code(s): I10 - ESSENTIAL (PRIMARY) HYPERTENSION Status: Acute (10) History of prosthetic aortic valve Code(s): Z95.2 - PRESENCE OF PROSTHETIC HEART VALVE Status: Acute (11) TIA (transient ischemic attack) Status: Acute - Plan Plan: Plan: Atrial flutter w/RVR - Resolved, s/p ablation yesterday. - EP on board. Will look for recommendations for today concerning when clear for discharge. - Cards following. Will continue to monitor on telemetry. CHF - Last Echo in office showed preserved EF w/ possible component of dCHF. - Per cards, hemoptysis could be 2/2 a flutter in combo w/ possible dCHF. Pulmonary effusion b/l - Likely due to pulmonary congestion - Patient satted well on RA overnight. - Pulmonology on board. Hemoptysis - Most likely alveolar hemorrhage 2/2 vascular congestion. - Pulmonology following. Appreciate recs. - Per patient is now darker in color rather than bright red blood and is loose w / no clots as of yesterday. Hx of prosthetic aortic valve - INR up to 1.8 this AM after increasing from 7.5 to 8. Goal is INR between 2-3 due to h/o cva on warfarin with 1.5-2 goal. - Will consider continuing with current dose upon discharge and having patient f /u w/ INR as outpatient. HTN - Will continue home metoprolol & lisinopril. Hx of CVA - Aware, will continue ASA & initiate statin therapy. Parkinson's Disease - Will continue Carbidopa-levodopa. Depression/Anxiety - Continue Sertraline Dispo: Patient is currently stable & now off of supplemental O2. Will continue care on telemetry & clear for discharge w/ close INR follow-up pending EP recommendations.
[2018-05-23] MEDS: Lisinopril 20 MG TAB PO SCH (09:06)
[2018-05-23] MEDS: Ubidecarenone 50 MG CAP PO SCH (09:06)
[2018-05-23] MEDS: Aspirin 81 mg Enteric Coated Tablet PO SCH (09:07)
[2018-05-23] MEDS: Fish Oil 1,000 MG CAP PO SCH (09:07)
[2018-05-23 09:58] LABS: Eosinophils 4 % (0-10); Lymphocytes 16 % (21-51); MDiff Complete? YES; Mean Corpuscular HGB CONC 31.8 g/dL (32.0-36.0); Mean Corpuscular Hemoglobin 31.2 pg (27.0-31.0); Mean Corpuscular Volume 98.2 fL (78.0-98.0); Mean Platelet Volume 8.5 fL (7.4-10.4); Monocytes 24 % (0-10); Neutrophil 53 % (42-75); PLT Morphology Comment Appears Adequate; Platelet Count 251 thou/uL (130-400); RBC Distribution Width 12.5 % (11.5-14.5); RBC Morphology Normal; Reactive Lymphocytes 2 % (0-10); Red Blood Cell (RBC) Count 4.47 mill/uL (4.70-6.10); White Blood Cell (WBC) Count 6.8 thou/uL (4.8-10.8)
--- NOTE | 2018-05-23 10:19 | ECHO ---
TRANSESOPHAGEAL ECHOCARDIOGRAM REPORT: REASON FOR PROCEDURE: Mr. Snyder is a 72-year-old man with history of a mechanical aortic valve replacement on chronic Coumad in therapy, which was subtherapeutic on admission. He has been having some hemoptysis which possibly was thought to be secondary congestion. He was found to be in atrial flutter with rapid rates. He was to diuretics, but the atrial flutter still persists with improving rate control on dilti azem. He is here for a BENNIE prior to the procedure to rule out intracardiac clots. PROCEDURE IN DETAIL: The patient received propofol by Anesthesia specialist. After adequate level of sedation achieved, t he standard transesophageal echocardiogram probe was passed into the vagus without difficulty. The p atient tolerated procedure well, no complications noted. RESULTS: The left atrium is upper limit of normal. Left atrial appendage is well visualized and contains no c lots and the left appendage velocities up to 40 cm seconds. The 4 out of 4 pulmonary veins are well visualized and contains no significant acute reversal. Mild concentric mitral regurgitation is seen. Mitral valve is somewhat thickened. The left ventricular function is near normal. LVEF estimated at 50-55% without significant wall motion abnormalities. Right side chamber is nondilated. Mild tri cuspid regurgitation seen. Mechanical aortic valve is well seated without significant regurgitation and adequate openings are noted. The pericardial space without effusion. The visualized portion the ascending and descending aorta without aneurysm, dissection, some anterior and atheroma, though, not ed at the mid descending aorta. CONCLUSION: 1. No intracardiac clots. 2. Normal left ventricular systolic function. 3. Adequately seated and functioning mechanical aortic valve in place. 4. Mild mitral and tricuspid regurgitation. PLAN: Proceed with the ablation procedure. POS: [facility]
--- NOTE | 2018-05-23 13:20 | EKG ---
Test Reason : COUGHING UP BLOOD Blood Pressure : / mmHG Vent. Rate : 118 BPM Atrial Rate : 118 BPM P-R Int : 000 ms QRS Dur : 086 ms QT Int : 338 ms P-R-T Axes : 106 056 149 degrees QTc Int : 473 ms Atrial Flutter No ST/T wave changes Abnormal ECG Confirmed by TIA CAREY ([id number]), television news video editor NOEMI SAUNDERS ([id number]) on 05/23/2018 1:20:22 PM Referred By: CHERRY Confirmed By:TIA CAREY
--- NOTE | 2018-05-23 14:53 | PRG ---
DATE OF SERVICE: 05/23/2018 SUBJECTIVE: The patient is still coughing up some dried blood, but overall he says that the hemoptys is has regressed. OBJECTIVE: VITAL SIGNS: Temperature 98.6, pulse 85, respirations 14, O2 sat 93% on room air, blood pressure 138 /90. HEENT: Unremarkable. NECK: No JVD. LUNGS: Clear anteriorly. CARDIOVASCULAR: S1 and S2 regular. ABDOMEN: Soft. EXTREMITIES: No edema. LABORATORY DATA: White blood cell count 6.8, hematocrit 43.9, platelet count 251,000. Sodium 139, p otassium 3.8, chloride 106, CO2 25, BUN 16, creatinine 0.7, glucose 90. ASSESSMENT: Transient hemoptysis, likely secondary to congestive heart failure or bronchitis. PLAN: Condition is resolved. I do not suspect that it will recur. The patient has been given the c leny to our office to follow up if the hemoptysis comes back. We will sign off the case. Please reca ll if further assistance needed.
[2018-05-23 20:03] VITALS: BP 149/92; TEMP 99.2
[2018-05-23] MEDS ORDERED: Atorvastatin Calcium 40 MG TAB PO SCH (21:00)
[2018-05-23] MEDS ORDERED: Carbidopa/Levodopa CR 50-200 mg Tablet PO SCH (21:00)
--- NOTE | 2018-05-24 20:24 | EKG ---
Test Reason : Blood Pressure : / mmHG Vent. Rate : 122 BPM Atrial Rate : 244 BPM P-R Int : 000 ms QRS Dur : 092 ms QT Int : 380 ms P-R-T Axes : 249 077 269 degrees QTc Int : 541 ms Atrial flutter with 2:1 A-V conduction Possible Inferior infarct , age undetermined Anterior infarct , age undetermined Abnormal ECG When compared with ECG of 10-AUG-2015 12:49, Significant changes have occurred Confirmed by Harley VILLA ([id number]) on 05/24/2018 8:23:56 PM Referred By: STEFANY lópez Confirmed By:Harley VILLA
--- NOTE | 2018-05-24 20:56 | EKG ---
Test Reason : Blood Pressure : / mmHG Vent. Rate : 096 BPM Atrial Rate : 242 BPM P-R Int : 000 ms QRS Dur : 102 ms QT Int : 394 ms P-R-T Axes : 078 066 235 degrees QTc Int : 497 ms Poor data quality, interpretation may be adversely affected Atrial flutter with variable A-V block Minimal voltage criteria for LVH, may be normal variant Anterior infarct (cited on or before 20-MAY-2018) T wave abnormality, consider inferolateral ischemia Abnormal ECG When compared with ECG of 20-MAY-2018 02:20, (Unconfirmed) Serial changes of evolving Anterior infarct Present Confirmed by Harley VILLA ([id number]) on 05/24/2018 8:56:32 PM Referred By: LIZ Confirmed By:Harley VILLA
--- NOTE | 2018-05-24 21:18 | EKG ---
Test Reason : POST ABLATION Blood Pressure : / mmHG Vent. Rate : 066 BPM Atrial Rate : 066 BPM P-R Int : 196 ms QRS Dur : 082 ms QT Int : 462 ms P-R-T Axes : 039 083 111 degrees QTc Int : 484 ms Sinus rhythm with sinus arrhythmia with frequent Premature ventricular complexes Voltage criteria for left ventricular hypertrophy Cannot rule out Septal infarct (cited on or before 20-MAY-2018) T wave abnormality, consider lateral ischemia Abnormal ECG When compared with ECG of 21-MAY-2018 16:23, (Unconfirmed) Sinus rhythm has replaced Atrial flutter Serial changes of Septal infarct Present Confirmed by Harley VILLA ([id number]) on 05/24/2018 9:18:28 PM Referred By: LIZ Confirmed By:Harley VILLA
--- NOTE | 2018-05-25 14:58 | ADD-PRG ---
ADDENDUM: DATE OF SERVICE: 05/23/2018 Please see the note from Dr. Carmita Alegre for which I agree. The patient was seen and evaluated, e xamined and discussed with the residents by bedside. This is a gentleman who is status post ablation for atrial flutter and doing perfectly fine. PHYSICAL EXAMINATION: ENT: Normal. LUNGS: Clear. CARDIOVASCULAR: Regular rate and rhythm currently, couple ectopic beats and nothing that unusual. EXTREMITIES: Show no edema. PLAN: I try to be able send him home today. His INR is 1.8 2.0, but he states he has been low INR intermittently for weeks to months, and they will increase fairly quickly and we are not having him on Lovenox for now anyway, so I do not think there is really any benefit to keeping him in the ho spital just to monitor him as he otherwise is stable. So, as long as sample maker original and electrophysiol ogist think he can go home, should be able to discharge him. He will follow up with them as well as his primary.
--- NOTE | 2018-05-26 09:26 | OP ---
ELECTROPHYSIOLOGY STUDY AND RADIOFREQUENCY ABLATION REPORT DATE OF PROCEDURE: 05/22/2018 REASON FOR PROCEDURE: Mr. Snyder is a 72-year-old male with prior history of aortic valve replacement who presenting with soft atrial flutter and hemoptysis. due to his fluid overload. He underwe nt a BENNIE demonstrating no intracardiac clots, adequate mechanical aortic valve function and a near no rmal LV systolic function. Here for EPS and ablation procedure. PROCEDURE: The patient received propofol by Anesthesia specialist. After adequate sedation achieved , the right femoral venous area was prepped, draped and anesthetized with subcutaneous lidocaine and under ultrasound guidance, the right femoral vein was cannulated x2. Two 8-Thai short sheath was i ntroduced through this. A Decapolar and a ThermoCool SF catheter was advanced to the right atrium. Right atrial map and CS His bundle map was obtained. The CS catheter was advanced into the CS. The following findings were noted. Baseline rhythm is atrial flutter, which appears to be typical isthmu s-dependent based on the overdrive pacing of the atrial flutter, has yielded a post-pacing interval e qual to the tachycardia cycle length which was a cycle length of 280 milliseconds. Lateral CS pacing in a similar fashion yielded long post-pacing interval. Entrainment was noted from the isthmus. Th e postablation basic cycle length was 688, NV 99 milliseconds, QRS 89 milliseconds, QT 333 millisecon ds, HV 58 milliseconds. The AV Wenckebach cycle length was 400 milliseconds. AV node ERP after abla tion was 600/260 milliseconds. Cardiac sinus node recovery time was 900 milliseconds. Burst atrial pacing post-ablation did not reinduce arrhythmia. The radiofrequency ablation was performed for abou t 5 minutes and 90 seconds. Total of 5 applications delivered at 40 goldberg. This successfully termin ated atrial flutter and subsequently, we rechecked the patency of the isthmus line with proximal CS s pacing demonstrating transisthmus times over 180 milliseconds. A unilateral block was demonstrated b y longest transisthmus times adjacent to the ablation line. CONCLUSION: 1. Typical cavotricuspid isthmus dependent atrial flutter at baseline. 2. Cavotricuspid isthmus ablation, atrial flutter and . 3. Abnormal sinus tala function. 4. Normal AV tala and His bundle function. PLAN: Routine postoperative care. Resume anticoagulation with Coumadin and monitor for any recurren t arrhythmias.
== END 2018-05-23 16:47 | disposition home or self-care (01) | DRG 308 ==
LOC: ERS 09:46 → ERHOLD 12:28 → 2NO 14:46
PROVIDERS: ADMIT Family Medicine; ATTEND Family Medicine
DX: I48.92 Unspecified atrial flutter (principal); I50.33 Acute on chronic diastolic (congestive) heart failure; R04.2 Hemoptysis; J90 Pleural effusion, not elsewhere classified; R04.89 Hemorrhage from other sites in respiratory passages; I11.0 Hypertensive heart disease with heart failure; E78.5 Hyperlipidemia, unspecified; J40 Bronchitis, not specified as acute or chronic; Z86.73 Personal history of transient ischemic attack (TIA), and cerebral infarction without residual deficits; N40.0 Benign prostatic hyperplasia without lower urinary tract symptoms; I48.91 Unspecified atrial fibrillation; Z95.2 Presence of prosthetic heart valve; Z88.0 Allergy status to penicillin; Z79.899 Other long term (current) drug therapy; Z79.82 Long term (current) use of aspirin; Z79.01 Long term (current) use of anticoagulants; F32.9 Major depressive disorder, single episode, unspecified; F41.9 Anxiety disorder, unspecified; G20 Parkinson's disease; R79.89 Other specified abnormal findings of blood chemistry
CPT/HCPCS: 36415; 71045; 71046; 71275; 76942; 80048; 80053; 82553; 83605; 83735; 83880; 84145; 84443; 84484; 85025; 85610; 85730; 87070; 87205; 89220; 90471; 90662; 93005; 93010; 93306; 93312; 93613; 93623; 93653; 93798; 96372; 96374; 96375; A4216; C1730; C1769; G0008; J1265; J1644; J1650; J1940; J2001; J2270; J2405; J2704; J7050

== ENCOUNTER 2019-02-15 08:09 | Outpatient (CLI) | payer MEDICARE, OTHER ==
--- NOTE | 2019-02-15 11:16 | MRI ---
MRI BRAIN WITH AND WITHOUT CONTRAST: DATE: 02/15/19 HISTORY: 73-year-old male with vertigo. TECHNIQUE: Multiple sequences obtained in axial, sagittal, and coronal planes; pre and post IV injection of gado linium-based contrast agent: 18 mL MultiHance. A standard brain MRI was performed by the clinical laboratory technologist. An MRI of the brain and IACs was not perf ormed. FINDINGS: The ventricles are normal in size and configuration. There is no restricted diffusion, abnormal intr aaxial enhancement, mass, midline shift or any other mass effect, recent intraaxial hemorrhage, or ex traaxial fluid collection. There are a few scattered punctate T2-hyperintensities in the cerebral whi te matter consistent with mild chronic ischemic white matter changes due to mild microvascular athero sclerosis. There are multiple small old lacunar infarctions in the bilateral cerebellar hemispheres. The left ma xillary, left frontal, and left anterior ethmoid, sinuses are filled with material of heterogeneous, mixed signal intensity, with rim enhancement. There is partial filling of some of the right anterior ethmoid air cells with similar material. The number of small cerebellar lacunar infarctions has increased on the current MRI compared to 11/22. The left paranasal sinus disease on the current MRI is significantly worse than on the prior. IMPRESSION: 1. Mild chronic ischemic white matter changes. 2. Multiple tiny old lacunar infarctions in the bilateral cerebellar hemispheres. These have increase d in number compared to prior MRI of 11/22/16. 3. Ostiomeatal unit occlusive pattern of left paranasal sinus disease. rebecca[] POS: MALGORZATA
[2019-02-15] MEDS ORDERED: Gadobenate Dimeglumine 529 MG/1 ML (20ML VIAL) ONE (11:58)
== END 2019-02-15 08:10 | disposition home or self-care (01) ==
LOC: BICMRI 08:09
PROVIDERS: ATTEND Psychiatry & Neurology Neurology
DX: R42 Dizziness and giddiness (principal)
CPT/HCPCS: 70553; 82565; A9577

== ENCOUNTER 2019-03-28 10:03 | Observation (INO) | payer MEDICARE, OTHER ==
[2019-03-28] MEDS ORDERED: Aspirin 325 MG TAB ONE (11:07)
[2019-03-28] MEDS ORDERED: Nitroglycerin 0.4 MG TAB 1 EACH ONE (11:07)
[2019-03-28 11:14] LABS: #Basophils 0.1 thou/uL (0.0-0.2); #Eosinphils 0.2 thou/uL (0.0-0.7); #Lymphocytes 2.7 thou/uL (1.20-3.40); #Monocytes 0.9 thou/uL (0.11-0.59); #Neutrophils 3.2 thou/uL (1.40-6.50); %Basophils 0.8 % (0.0-1.0); %Eosinophils 2.8 % (0.0-10.0); %Lymphocytes 38.2 % (21.0-51.0); %Monocytes 12.2 % (0.0-10.0); Hemoglobin 14.9 g/dL (14.0-18.0); Mean Corpuscular HGB CONC 32.2 g/dL (32.0-36.0); Mean Corpuscular Volume 96.3 fL (78.0-98.0); Mean Platelet Volume 8.2 fL (7.4-10.4); Platelet Count 215 thou/uL (130-400)
[2019-03-28 11:21] LABS: PTT 35.2 SEC (22.9-36.1); Prothrombin Time 22.5 SEC (12.0-14.7)
--- NOTE | 2019-03-28 11:29 | RAD ---
PORTABLE AP CHEST XRAY: HISTORY: Chest pain and shortness of breath. Increased weight gain of 5 pounds in 24 hours. COMPARISON: 05/31/2018. FINDINGS: Postsurgical changes related to median sternotomy and cardiac replacement are again noted. The cardi ac silhouette remains enlarged. Pulmonary vasculature is within normal limits for the portable techn ique of the study and similar to the prior exam. The lungs remain clear. There has been no interval change compared to the prior study. IMPRESSION: 1. No acute cardiopulmonary process. 2. Cardiomegaly. POS: CELESTE
[2019-03-28 11:41] LABS: ALT (SGPT) 60 U/L (8-55); AST (SGOT) 35 U/L (5-34); Albumin 3.7 g/dL (3.4-4.8); Alkaline Phosphatase 86 U/L (40-150); Anion Gap 11 mmol/L (10-20); BUN (Urea Nitrogen) 13 mg/dL (8.4-25.7); Bilirubin, Total 0.6 mg/dL (0.2-1.2); CK (CPK) 75 U/L (30-200); Calc. Creatinine Clearance 0 mL/min (70-130); Carbon Dioxide 24 mmol/L (23-31); Chloride 108 mmol/L (98-107); Estimated GFR-MDRD Greater than 90; Globulin 2.6 g/dL (2.4-3.5); Glucose 89 mg/dL (83-110); Potassium 4.7 mmol/L (3.5-5.1); Protein, Total 6.3 g/dL (5.8-8.1); Sodium 138 mmol/L (136-145)
[2019-03-28 12:03] LABS: CKMB 3.5 ng/mL (0-6.6)
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
[2019-03-28] MEDS ORDERED: Nitroglycerin 0.4 MG TAB (25 Tab Bottle) PO PRN (14:02)
[2019-03-28] MEDS ORDERED: Ondansetron PF 4 MG/2 ML Vial IVP PRN (14:27)
[2019-03-28] MEDS ORDERED: Acetaminophen 325 MG TAB PO PRN ×2 (14:27→16:41)
[2019-03-28] MEDS ORDERED: Ondansetron ODT 4 MG TAB SL PRN (14:27)
[2019-03-28 14:33] LABS: Troponin I 0.022 ng/mL (< 0.028)
[2019-03-28 15:17] VITALS: BMI 31.0
[2019-03-28] MEDS ORDERED: Docusate 100 MG CAP PO PRN (16:41)
[2019-03-28] MEDS ORDERED: Warfarin Sodium 10 MG TAB PO SCH ×2 (17:00→18:45)
[2019-03-28 17:55] LABS: Troponin I 0.034 ng/mL (< 0.028)
[2019-03-28] MEDS: Metoprolol Tartrate 25 MG TAB PO SCH (19:56)
[2019-03-28] MEDS: Fish Oil 1,000 MG CAP PO SCH (19:57)
[2019-03-28] MEDS: Pregabalin 50 MG CAP PO SCH (19:58)
[2019-03-28] MEDS ORDERED: Atorvastatin Calcium 40 MG TAB PO SCH (21:00)
[2019-03-28] MEDS ORDERED: Carbidopa/Levodopa CR 50-200 mg Tablet PO SCH (21:00)
[2019-03-28] MEDS ORDERED: [UNRECOGNIZED DRUG - OTHER] PO SCH (21:00)
[2019-03-28] MEDS ORDERED: FATTY ACIDS PO SCH (21:00)
[2019-03-28] MEDS ORDERED: OMEGA PO SCH (21:00)
[2019-03-28] MEDS ORDERED: Pregabalin 50 MG CAP PO SCH (21:00)
[2019-03-28] MEDS ORDERED: FISH OIL PO SCH (21:00)
[2019-03-28] MEDS ORDERED: Metoprolol Tartrate 25 MG TAB PO SCH (21:15)
[2019-03-29 05:39] LABS: Cardiac Risk 4.9 (Less than 4.5)
[2019-03-29 05:42] LABS: Troponin I 0.188 ng/mL (< 0.028)
--- NOTE | 2019-03-29 05:57 | PDOC.FM ---
- Subjective Subjective: Patient sitting up in bed resting comfortably this morning. He states he feels well and is waiting to go to stress test this morning. His troponin raised from 0.03 to 0.188 this AM. Patient denies chest pain, SOB, nausea/vomiting, dizziness. Voices no complaints. - Objective MAR Reviewed: Yes Vital Signs & Weight: Vital Signs (12 hours) Temp Pulse Resp BP BP Pulse Ox 03/29/19 04:04 98.5 F 88 16 135/79 94 L 03/28/19 23:10 94 16 116/77 94 L 03/28/19 20:55 113 H 136/100 H 03/28/19 19:23 94 L 03/28/19 18:20 97.8 F 98 18 123/90 93 L Weight Weight 100.924 kg I&O: 03/27/19 03/28/19 03/29/19 06:59 06:59 06:59 Intake Total 780 Output Total 825 Balance -45 Result Diagrams: 03/28/19 11:06 03/28/19 11:06 Phys Exam - Physical Examination Constitutional: NAD HEENT: PERRLA, moist MMs Neck: no JVD, supple, full ROM Respiratory: no wheezing, no rales, no rhonchi, clear to auscultation bilateral Cardiovascular: RRR soft systolic murmur over aortic area Gastrointestinal: soft, non-tender, positive bowel sounds Musculoskeletal: no edema, pulses present Neurological: normal sensation, moves all 4 limbs Psychiatric: normal affect, A&O x 3 Skin: no rash, normal turgor Dx/Plan (1) Parkinson disease Code(s): G20 - PARKINSON'S DISEASE Status: Acute (2) Depression Code(s): F32.9 - MAJOR DEPRESSIVE DISORDER, SINGLE EPISODE, UNSPECIFIED Status : Acute Qualifiers: Depression Type: unspecified Qualified Code(s): F32.9 - Major depressive disorder, single episode, unspecified (3) Anticoagulant long-term use Code(s): Z79.01 - MONITOR TECHNICIAN (CURRENT) USE OF ANTICOAGULANTS Status: Acute (4) Atrial flutter with rapid ventricular response Code(s): I48.92 - UNSPECIFIED ATRIAL FLUTTER Status: Acute (5) CHF (congestive heart failure) Code(s): I50.9 - HEART FAILURE, UNSPECIFIED Status: Acute Qualifiers: Heart failure type: unspecified Heart failure chronicity: chronic Qualified Code(s): I50.9 - Heart failure, unspecified (6) Chest pain Code(s): R07.9 - CHEST PAIN, UNSPECIFIED Status: Acute Qualifiers: Chest pain type: unspecified Qualified Code(s): R07.9 - Chest pain, unspecified (7) HTN (hypertension) Code(s): I10 - ESSENTIAL (PRIMARY) HYPERTENSION Status: Acute Qualifiers: Hypertension type: essential hypertension Qualified Code(s): I10 - Essential (primary) hypertension (8) History of prosthetic aortic valve Code(s): Z95.2 - PRESENCE OF PROSTHETIC HEART VALVE Status: Acute - Plan Plan: 73-yo Male with PMHx of CHF, A-Fib, artificial Aortic valve, & Parkinson's Disease admitted to obs for new chest pain: 1. Chest pain r/o - HEART score 6 - Stress test in AM. Placed on NPO at midnight - Consider cardio consult in AM if stress test results abnormal - Last ECHO in May [address] Brandon - CXR: cardiomegaly, no acute process - EKG: a-fib w/ controlled rhythm - Lipid panel & Troponins pending this AM - Nitro and ASA ordered 2. A-fib w/ controlled ventricular response, has pacemaker - Monitor on telemetry - Extra dose of home Metoprolol given on 03/28 for sustained tachycardia, consider restarting home Metoprolol after stress test completed this AM - Continue warfarin 3. Hypertension - continue Metoprolol 4. Hx of aortic valve replacement - INR 2.0, therapeutic range for AV replacement is 2.0-3.0 - cont. home Warfarin, received 10mg on 03/28 5. HFpEF - EF 50-55% noted in BENNIE 06/01/18 6. BPH 7. Parkinson's - currently tx with Carbidopa/Levodopa, being held 8. Depression - Continue home med Sertraline Diet: NPO at midnight, place on HH after stress test completed Code: FULL VTEs: SCDs Dispo: Currently stable, Telemetry obs with expected LOS <48 hrs. Addendum - Attending - Attending Attestation Date/Time: 03/29/19 9256 I personally evaluated the patient and discussed the management with Dr. Lainez. I agree with the History, Examination, Assessment and Plan documented above with any addition or exceptions noted below. Patient doing well, no recurrent events overnight. Going for nuclear stress today. Consider increasing his Metoprolol after the stress testing to help prevent breakthrough tachycardia. Will discuss with his proctologist after stress result.
[2019-03-29] MEDS ORDERED: Lisinopril 20 MG TAB PO SCH (09:00)
[2019-03-29] MEDS: Fish Oil 1,000 MG CAP PO SCH ×2 (09:21→11:59)
[2019-03-29] MEDS: Aspirin 325 mg Enteric Coated Tablet PO SCH ×2 (09:21→11:59)
[2019-03-29] MEDS: Pregabalin 50 MG CAP PO SCH ×2 (09:22→11:58)
[2019-03-29] MEDS: Metoprolol Tartrate 25 MG TAB PO SCH ×2 (09:22→11:59)
[2019-03-29 13:07] VITALS: BP 140/94; TEMP 98.4
[2019-03-29] MEDS ORDERED: ADENOSINE 60 MG/20 ML VIAL ONE (14:06)
--- NOTE | 2019-03-29 14:21 | NM ---
CARDIAC SPECT: HISTORY: A 73-year-old male with chest pain, CHF, atrial fibrillation. TECHNIQUE: A myocardial perfusion scan is performed using the single-isotope 1-day protocol with Technetium 99m sestamibi. Thirteen mCi were injected intravenously for the stress and rest images. Pharmacologic s tress with adenosine is monitored and interpreted by Dr. Chen. FINDINGS: No fixed or reversible defects are seen. GATED SPECT LVEF: 30%. WALL MOTION EXAM: Global hypokinesis. IMPRESSION: No evidence of reversible ischemia. POS: TPC
[2019-03-29] MEDS ORDERED: Warfarin Sodium 7.5 MG TAB PO SCH ×2 (17:00)
--- NOTE | 2019-03-30 04:47 | DIS ---
DATE OF ADMISSION: 03/28/2019 DATE OF DISCHARGE: 03/29/2019 RESIDENT PHYSICIAN: Yessy Lainez DO. ADMITTING ATTENDING: Niraj Louis MD. DISCHARGE ATTENDING: Niraj Louis MD. CONSULTS: None. PROCEDURES: Stress test, nuclear medicine-results show no evidence of reversible ischemia, no fixed or reversible defects are seen, global hypokinesis of wall motion. PRIMARY DIAGNOSIS: Chest pain, rule out. SECONDARY DIAGNOSES: 1. Atrial fibrillation with RVR. 2. Hypertension. 3. History of aortic valve replacement. 4. Heart failure with preserved ejection fraction (EF of 50% to 55% in May 2018). 5. BPH. 6. Parkinson's. 7. Depression. DISCHARGE MEDICATIONS: 1. Lisinopril 40 mg p.o. daily. 2. Metoprolol tartrate 25 mg p.o. b.i.d. 3. [place]-3 fatty acids/fish oil two caps p.o. b.i.d. 4. Pregabalin (Lyrica) 100 mg p.o. b.i.d. 5. Sertraline HCl 50 mg p.o. daily. 6. Testosterone (AndroGel) 1% one application daily. 7. CoQ10 extended release 200 mg p.o. daily. 8. Warfarin 7.5 mg p.o. daily on Friday, Friday, Friday. 9. Warfarin 10 mg tablet p.o. daily on Sundays, Tuesdays, , Saturdays. DISCONTINUED MEDICATIONS: 1. Tylenol 650 mg p.o. q.4 hours p.r.n. 2. Aspirin 325 mg p.o. daily. 3. Atorvastatin 40 mg p.o. at bedtime. 4. Sinemet (carbidopa/levodopa) 0.5 tab p.o. b.i.d. 5. Colace 200 mg p.o. at bedtime p.r.n. 6. Nitroglycerin 0.4 mg p.o. p.r.n. 7. Ondansetron (Zofran) 4 mg IVP q.6 hours p.r.n. HISTORY OF PRESENT ILLNESS/HOSPITAL COURSE: The patient was seen in [facility] ER on 03/28/2019 for chest pain/pressure, chest tightness, and shortness of breath which had started on March 26 while he was working outside. He never felt this pain before. The pain was described as a heaviness across the sternum and did not radiate. Pain worsened with exertion and improved with rest. The chest pain and shortness of breath recurred on the morning of March 28 bringing him to the ED. The patient states he checked his pulse and BP at home, was then 110 bpm and 157 /110 respectively. Associated symptoms included lightheadedness and a 5-pound weight gain over the past day. At that time, he denied sweating, nausea, or syncopal symptoms. In the emergency room, he was given nitroglycerin and aspirin and chest pain was subsequently improved. He was admitted to the Family Medicine Service on 03/28/2019. The patient continued to do well and improved on the floor. On the morning of March 29, 2019, he was seen in bed, resting comfortably. He stated he felt well and was waiting for a stress test. He denied any chest pain, shortness of breath, nausea, vomiting, dizziness, or otherwise any other complaints at that time. However, on his morning labs, it was noted that his troponin had raised from 0.03 to 0.188 on the morning of 03/29. The patient's flying instructor, Dr. Brandon was contacted and had no further recommendations other than to complete the stress test. The patient had already had an echo done in May 2018, which was normal per the patient. A nuclear stress test was completed in the early afternoon on 2018 and the results were normal. At that time, the patient was deemed stable for discharge back home with suggested followup with Dr. Brandon within 1 week after discharge, and with his PCP within 10 days after discharge. PERTINENT LABORATORY DATA: 1. Labs on March 28. a. CBC: WBC 7.0, hemoglobin 14.9, hematocrit 46.2, platelets 215. b. PT 22.5, INR 2.0, APTT 35.2. c. CMP: Sodium 138, potassium 4.7, chloride 108, carbon dioxide 24, BUN 13, creatinine 0.75, glucose 89, calcium 9.9, total bilirubin 0.6, AST 35, ALT 16, alkaline phosphatase 86, CK 75, CK-MB 3.5, serum total protein 6.3. d. CK-MB 3.5, troponin 0.032 -> 0.022 -> 0.034. e. BNP 610. 2. Labs on March 29. a. Lipid panel: Triglyceride 99, cholesterol 162, LDL 109, HDL 33, heart disease risk ratio 4.9. DISPOSITION: Stable. DISCHARGE INSTRUCTIONS: 1. Location: Home. 2. Diet: Heart healthy. 3. Activity: As tolerated. 4. Follow up in [address] Brandon, and in [address] Mackay (PCP). Job ID: [id number] [id number]
[2019-03-30] MEDS ORDERED: Warfarin Sodium 10 MG TAB PO SCH ×2 (17:00)
--- NOTE | 2019-04-03 12:33 | EKG ---
Test Reason : Blood Pressure : / mmHG Vent. Rate : 094 BPM Atrial Rate : 267 BPM P-R Int : 000 ms QRS Dur : 082 ms QT Int : 384 ms P-R-T Axes : 000 043 096 degrees QTc Int : 480 ms Atrial fibrillation Confirmed by ELEUTERIO SCOTT ([id number]), scientific editor NOEMI SAUNDERS ([id number] on 04/03/2019 12:32:50 PM Referred By: Confirmed By:ELEUTERIO SCOTT
== END 2019-03-29 16:12 | disposition home or self-care (01) ==
LOC: ERS 10:03 → 2SW 14:17
PROVIDERS: ADMIT Student in an Organized Health Care Education/Training Program; ATTEND Student in an Organized Health Care Education/Training Program
DX: R07.89 Other chest pain (principal); I48.91 Unspecified atrial fibrillation; I11.0 Hypertensive heart disease with heart failure; I50.30 Unspecified diastolic (congestive) heart failure; N40.0 Benign prostatic hyperplasia without lower urinary tract symptoms; G20 Parkinson's disease; F32.9 Major depressive disorder, single episode, unspecified; F41.9 Anxiety disorder, unspecified; E78.5 Hyperlipidemia, unspecified; I48.92 Unspecified atrial flutter; Z86.711 Personal history of pulmonary embolism; Z86.73 Personal history of transient ischemic attack (TIA), and cerebral infarction without residual deficits; Z95.2 Presence of prosthetic heart valve; Z88.0 Allergy status to penicillin; Z79.01 Long term (current) use of anticoagulants; Z79.899 Other long term (current) drug therapy
CPT/HCPCS: 71045; 78452; 80053; 80061; 82550; 82553; 83880; 84484 ×3; 85025; 85610; 85730; 93005; 93017; 94760; 99285; A9500; G0378 ×3; 36415; J0153

== ENCOUNTER 2019-05-24 13:45 | Outpatient (CLI) | payer MEDICARE, OTHER ==
--- NOTE | 2019-05-24 15:18 | ULT ---
BILATERAL CAROTID DUPLEX ULTRASOUND: DATE: 05/24/19 HISTORY: Lightheadedness. TECHNIQUE: Mchugh scale ultrasound with color flow and spectral Doppler imaging of the extracranial carotid artery systems performed bilaterally. FINDINGS: There is a small amount of plaque formation in the right carotid bulb. The peak systolic velocity in the right ICA measures 67 cm/second with an end-diastolic velocity of 1 1 cm/second and a systolic ratio of 0.91. The peak systolic velocity in the left ICA measures 72 cm/second with an end-diastolic velocity of 12 cm/second and a systolic ratio of 0.66. Flow in both vertebral arteries remains antegrade. IMPRESSION: No evidence of hemodynamically significant stenosis in either ICA. POS: OFF
== END 2019-05-24 13:46 | disposition home or self-care (01) ==
LOC: BICULT 13:45
PROVIDERS: ATTEND Family Medicine
DX: R55 Syncope and collapse (principal); R42 Dizziness and giddiness
CPT/HCPCS: 93880

== ENCOUNTER 2020-06-21 01:18 | Inpatient (IN) | payer MEDICARE, OTHER ==
[2020-06-21 01:58] LABS: #Basophils 0.1 thou/uL (0.0-0.2); #Eosinphils 0.2 thou/uL (0.0-0.7); #Lymphocytes 3.2 thou/uL (1.20-3.40); #Monocytes 0.8 thou/uL (0.11-0.59); #Neutrophils 6.1 thou/uL (1.40-6.50); %Basophils 1.1 % (0.0-1.0); %Eosinophils 2.1 % (0.0-10.0); %Lymphocytes 30.7 % (21.0-51.0); %Monocytes 8.1 % (0.0-10.0); %Neutrophils 58.1 % (42.0-75.0); Hemoglobin 16.9 g/dL (14.0-18.0); Mean Corpuscular Hemoglobin 32.2 pg (27.0-31.0); Mean Corpuscular Volume 97.6 fL (78.0-98.0); Mean Platelet Volume 8.6 fL (7.4-10.4); Platelet Count 247 thou/uL (130-400); RBC Distribution Width 13.3 % (11.5-14.5); Red Blood Cell (RBC) Count 5.25 mill/uL (4.70-6.10); White Blood Cell (WBC) Count 10.4 thou/uL (4.8-10.8)
[2020-06-21] MEDS ORDERED: Fentanyl 100 MCG/2 ML VIAL ONE ×2 (02:01→02:56)
[2020-06-21 02:09] LABS: Prothrombin Time 22.8 sec (12.0-14.7)
[2020-06-21 02:21] LABS: ALT (SGPT) 33 U/L (8-55); AST (SGOT) 31 U/L (5-34); Albumin 4.9 g/dL (3.4-4.8); Alkaline Phosphatase 106 U/L (40-110); Anion Gap 20 mmol/L (10-20); BUN (Urea Nitrogen) 41 mg/dL (8.4-25.7); Bilirubin, Total 0.7 mg/dL (0.2-1.2); Calc. Creatinine Clearance 0 mL/min (70-130); Calcium 10.1 mg/dL (7.8-10.44); Carbon Dioxide 22 mmol/L (23-31); Chloride 104 mmol/L (98-107); Estimated GFR-MDRD 61; Globulin 4.1 g/dL (2.4-3.5); Glucose 117 mg/dL (83-110); Potassium 4.8 mmol/L (3.5-5.1); Sodium 141 mmol/L (136-145)
[2020-06-21] MEDS ORDERED: Ondansetron PF 4 MG/2 ML Vial IVP PRN (04:20)
[2020-06-21] MEDS ORDERED: Dextrose 50% Abboject 50 ML SYRINGE SLOW IVP PRN (04:20)
[2020-06-21] MEDS ORDERED: Morphine 2 MG/ML VIAL SLOW IVP PRN (04:20)
[2020-06-21] MEDS ORDERED: Dextrose 5% in Water 1,000 ML IV PRN (04:20)
[2020-06-21] MEDS ORDERED: Cyclobenzaprine 10 MG TAB PO PRN (04:24)
[2020-06-21] MEDS ORDERED: traMADol HCl 50 MG TAB PO PRN (04:24)
[2020-06-21] MEDS ORDERED: Ketorolac Tromethamine 30 MG/ML VIAL ONE (05:00)
[2020-06-21] MEDS ORDERED: Morphine 2 MG/ML VIAL ONE (05:00)
[2020-06-21 05:13] LABS: Magnesium 2.2 mg/dL (1.6-2.6); Phosphorus 4.7 mg/dL (2.3-4.7)
--- NOTE | 2020-06-21 05:31 | HP ---
TRAUMA SURGEON: Dr. Teresa. CONSULTING PHYSICIAN: None. PRIMARY CARE PHYSICIAN: Guerrero Cruz MD. SUPERVISOR TELEPHONE INFORMATION: Dr. Brandon. YARD FOREMAN: Dr. Boyd. HISTORY OF PRESENT ILLNESS: The patient is a 75-year-old male, who presented to the emergency department via family. Daughter is at the bedside. The patient reports that he lost his balance while opening a door to the bathroom, and subsequently hit the left posterior aspect of his chest against a railing in the bathroom. He then fell down. He denies hitting his head or loss of consciousness. He denies neck or back pain. Denies shortness of breath, chest pain, nausea, vomiting, and diarrhea. He does not use any oxygen at home or assistive devices. He lives at home with his . He reported to the emergency department for significant left-sided posterior chest wall pain. CT scan of his head, C-spine, and chest demonstrated left- sided rib fractures and a left-sided hemopneumothorax. Upon my evaluation, the patient's pain was poorly to moderately well controlled. He was on 2 L nasal cannula, saturating 100% for his pneumothorax. He does not use any oxygen at home. Breath sounds are clear and the patient was hemodynamically stable. He has not taken his Coumadin this evening. REVIEW OF SYSTEMS: All additional 10-point review of systems negative except as indicated above. PAST MEDICAL HISTORY: CHF, Parkinson's, mechanical aortic valve replacement in 2007, depression, atrial flutter status post ablation and cardioversion, SHIRA currently on BiPAP at home, hypertension, and osteoarthritis. PAST SURGICAL HISTORY: Aortic valve replacement in 2007, splenectomy, wrist injury, bowel resection and TURP. SOCIAL HISTORY: The patient denies tobacco and drug use. Drinks small amount of alcohol most days of the weeks. He does not use any assistive devices to get around. MEDICATIONS: 1. Coumadin. 2. Metoprolol. 3. Atorvastatin. 4. Levothyroxine. 5. Sertraline. 6. Pregabalin. 7. Testosterone gel. 8. Tylenol. 9. CoQ10. ALLERGIES: PENICILLIN. PHYSICAL EXAMINATION: VITAL SIGNS: Temperature 98.0, pulse 92, respirations 18, oxygen saturation 100% on 2 L nasal cannula and blood pressure 105/57. PRIMARY SURVEY: Airway intact. Adequate breath sounds bilaterally. 2+ pulses in bilateral radials, femorals, and DPs. GCS 15. Gross motor and sensation intact. No lacerations, bruising or external bleeding. SECONDARY SURVEY: HEAD: Normocephalic and atraumatic. No gross palpable skull deformities or tenderness. EYES: Pupils 3-2, equal, round, reactive to light bilaterally. ENT: No signs of trauma. C-SPINE: No step-offs or deformities. Nontender. No C-collar in place. CHEST: Posterior chest wall tenderness. No crepitus. No abrasions or ecchymosis noted. ABDOMEN: Soft, nontender and nondistended. PELVIS: Stable to palpation, nontender. No abrasions or ecchymosis noted. RECTAL: Deferred. GENITOURINARY: Deferred. EXTREMITIES: No gross deformities. No abrasions or ecchymosis noted. 2+ pulses in bilateral radials, femorals, and DPs. BACK/SPINE: No step-offs or deformities or tenderness to palpation of thorax and lumbar spine. No abrasions or ecchymosis noted. NEUROLOGIC: 5/5 strength in bilateral presales senior specialist, plantar flexion, dorsiflexion. Gross normal sensation x4 extremities. LABORATORY FINDINGS: White count 10.4, hemoglobin 16.9, hematocrit 51.3, platelets 247. INR 2.0. Sodium 141, potassium 4.8, chloride 104, bicarb 22, BUN 41, creatinine 1.17, and glucose 117. Total bilirubin 0.7, AST 31, and ALT 33. DIAGNOSTIC FINDINGS: CT scan of the chest without contrast demonstrates several left-sided rib fractures, small left sided pneumothorax associated soft tissue erythema in the left chest wall. Linear atelectasis or parenchymal scarring in the base of the lingula of the left upper lung. CT scan of the head demonstrates no acute intracranial abnormalities. Mild degenerative cerebral atrophy. Inflammatory changes of the ethmoid air cells in bilateral maxillary sinuses. Findings suggestive of chronic bilateral maxillary sinusitis. CT scan of the C-spine demonstrates no acute cervical spinal abnormalities. Multilevel [id number] degenerative disk disease. Multilevel foraminal stenosis, severe at several levels. ASSESSMENT: 1. Status post mechanical fall from standing on Coumadin. 2. Left-sided ribs 3 through 7 fractures. 3. Left small hemopneumothorax. 4. Acute traumatic pain secondary to injuries listed above. 5. History of congestive heart failure, Parkinson's, mechanical aortic valve replacement, depression, atrial flutter status post ablation and cardioversion, Obstructive sleep apnea, BiPAP, hypertension, and osteoarthritis. PLAN: The patient will be admitted to the Trauma Service. We will hold his Coumadin. Repeat chest x-ray at 8:00 a.m. Repeat blood work tomorrow. Aggressive pain control and pulmonary hygiene q.1 hour, incentive spirometry, p.r.n. nebs. Repeat blood work tomorrow. We will hold his anticoagulation for now and possibly start tomorrow if the patient remains stable. The patient to use his home BiPAP if available. If not, we will try to accommodate him due to his SHIRA. The patient will likely be able to be discharged home to his family's care when pain is controlled and if his hemopneumothorax is stable. This patient was discussed with Dr. Teresa before this dictation. Job ID: [id number] [id number]
--- NOTE | 2020-06-21 08:18 | CT ---
PRELIMINARY REPORT/[facility]/EMERGENCY AFTER HOURS PROCEDURE: EXAM: CT Head Without Intravenous Contrast. CLINICAL HISTORY: PT REPORTS A MECHANICAL FALL AT HOME AROUND 0000. PT STATES HE FELL AND HIS UPPER BACK AGAINST A SAFT Y HANDLE IN HIS BATHROOM. PT REPORTS BACK PAIN AND LEFT SIDED RIB PAIN. TECHNIQUE: Axial computed tomography images of the head/brain without intravenous contrast. COMPARISON: 10/09/2014. FINDINGS: BRAIN: No acute intraparenchymal hemorrhage. No mass lesion. No CT evidence for acute territorial infarct. N o midline shift or extra-axial collection. Mild prominence of the sulci and ventricles. Arterioscle rosis. VENTRICLES: No hydrocephalus. ORBITS: The orbits are unremarkable. SINUSES AND MASTOIDS: Mucosal thickening of the ethmoid air cells and bilateral maxillary sinuses. Wall thickening of the bilateral maxillary sinuses. Mastoid air cells are clear. SOFT TISSUES: No significant facial or scalp soft tissue swelling evident. No radiopaque foreign body is seen. BONES: No acute skull fracture. IMPRESSION: No acute intracranial abnormality. Mild generalized cerebral atrophy. Inflammatory changes of the ethmoid air cells and bilateral maxillary sinuses. Findings suggestive o f chronic bilateral maxillary sinusitis. ELECTRONICALLY SIGNED BY: Param Arciniega MD Jun 21, 2020 2:36:29 AM BEAMER OPERATOR This report is intended for review by the ordering physician only, in accordance of law. If you recei ve this report in error, please call [facility] at [phone]. FINAL REPORT EMERGENT AFTER HOURS CT OF THE BRAIN PERFORMED WITHOUT CONTRAST ENHANCEMENT: History: Fall with head injury. Comparison: 10-09-14 FINDINGS: Generalized ventricular and sulcal prominence. There are no signs of intracerebral hemorrhage or extr aaxial fluid collections. Mastoid air cells are clear. Some mild ethmoid air cell and maxillary sinus mucosal disease. IMPRESSION: No acute intracranial abnormalities. This report is in agreement with the temporary issued by [facility]. [place]: [facility] [place]
[2020-06-21 08:28] VITALS: BMI 30.4
--- NOTE | 2020-06-21 08:32 | CT ---
PRELIMINARY REPORT/[facility]/EMERGENCY AFTER HOURS PROCEDURE: EXAM: CT Cervical Spine Without Intravenous Contrast. CLINICAL HISTORY: PT REPORTS A MECHANICAL FALL AT HOME AROUND 0000. PT STATES HE FELL AND HIS UPPER B ACK AGAINST A SAFTY HANDLE IN HIS BATHROOM. PT REPORTS BACK PAIN AND LEFT SIDED RIB PAIN. TECHNIQUE: Axial computed tomography images of the cervical spine without intravenous contrast. Sagit tere and coronal reformations performed. COMPARISON: None provided. FINDINGS: BONES: No acute fracture or focal osseous lesion. Bony alignment is anatomic. DISCS / DEGENERATIVE CHANGES: Multilevel mild to moderate degenerative disc disease. Multilevel facet spondylosis. Right-sided as a spondylosis and facet hypertrophy with severe right-sided foraminal stenosis at C3-C 4. Moderate right-sided foraminal stenosis at C4-C5. Severe bilateral foraminal stenosis at C5-C6. Severe bilateral foraminal stenosis at C6-C7. SOFT TISSUES: No prevertebral soft tissue swelling. No apical pneumothorax. IMPRESSION: No acute cervical spine abnormality. Multilevel mild to moderate degenerative disc disease. Multilevel foraminal stenosis, severe at hoa ral levels. ELECTRONICALLY SIGNED BY: Param Arciniega MD Jun 21, 2020 2:38:46 AM STREETCAR CONDUCTOR This report is intended for review by the ordering physician only, in accordance of law. If you recei ve this report in error, please call [facility] at [phone]. FINAL REPORT CT OF CERVICAL SPINE PERFORMED WITHOUT CONTRAST ENHANCEMENT: Date: 06/21/2020 HISTORY: Fall with neck pain. FINDINGS: The vertebral bodies are normal in height. Bones appear slightly demineralized. Disc narrowing is see n at the C5-6 and C6-7 levels. There are moderate degenerative facet changes present. Some carotid bu lb calcifications are noted. There is some moderate right-sided foraminal narrowing at C3-4. Mild left and mild to moderate right foraminal narrowing at C5-6. There are no signs of any central canal stenosis. There is no CT evidenc e for fracture. A tiny left-sided pneumothorax is identified. IMPRESSION: 1. No CT evidence of fracture of the cervical spine. 2. Tiny left-sided pneumothorax. This was not described in the cervical spine report, but was descri bed in the subsequent temporary report of the chest. Report in agreement with the preliminary report issued by [facility]. [place] [facility] [place]
--- NOTE | 2020-06-21 08:38 | CT ---
PRELIMINARY REPORT/[facility]/EMERGENCY AFTER HOURS PROCEDURE: Receipt of this report by the clinical staff was confirmed with mary haile rn by Alina Serrano on Jun 21, 2020 02:48:00 REGISTERED NURSE POST PARTUM. Addendum electronically signed by Alina Serrano on June 21, 2020 2:49:30 AM REGISTERED NURSE POST PARTUM EXAM: CT Chest Without Intravenous Contrast. CLINICAL HISTORY: PT REPORTS A MECHANICAL FALL AT HOME AROUND 0000. PT STATES HE FELL AND HIS UPPER BACK AGAINST A SAFT Y HANDLE IN HIS BATHROOM. PT REPORTS BACK PAIN AND LEFT SIDED RIB PAIN. TECHNIQUE: Axial computed tomography images of the chest without intravenous contrast. COMPARISON: 05/19/2018. FINDINGS: LUNGS: No pulmonary mass. No focal airspace consolidation. Linear densities of the lung bases. Linear dens ity in the lingula of the left upper lobe. PLEURAL SPACES: No pleural effusion. Small left-sided pneumothorax. HEART AND MEDIASTINUM: Moderate cardiomegaly. Prosthetic aortic valve. The coronary arteries are calcified. No significan t pericardial effusion. LYMPH NODES: No lymphadenopathy. CHEST WALL AND UPPER ABDOMEN: The upper abdominal solid organs are unremarkable. Soft tissue emphysema in the left chest wall. BONES: Fractures of the left anterior third and fourth ribs. Fractures of the left lateral fifth, sixth, an d seventh ribs. Nondisplaced fractures of the posterior left fifth, sixth, and seventh ribs. Sterno medina wires. Multilevel degenerative disc disease. IMPRESSION: Several left-sided rib fractures. Small left-sided pneumothorax. Associated soft tissue emphysema i n the left chest wall. Linear atelectasis or parenchymal scarring at the lung bases and lingula of the left upper lobe. Moderate cardiomegaly. Coronary artery disease. ELECTRONICALLY SIGNED BY: Param Arciniega MD Jun 21, 2020 2:44:11 AM REGISTERED NURSE POST PARTUM This report is intended for review by the ordering physician only, in accordance of law. If you recei ve this report in error, please call [facility] at [phone]. FINAL REPORT CT OF CHEST PERFORMED WITHOUT CONTRAST ENHANCEMENT: Date: 06/21/2020 HISTORY: Fall at home. Left-sided rib pain. FINDINGS: There are atelectatic changes in the lung bases and also some linear scarring. Tiny amount of left-si ded pleural effusion is seen. There are multiple left-sided rib fractures. There is a probable anteri or left third rib fracture. There are more lateral fourth, fifth, sixth, and seventh rib fractures. T hese fractures basically extend in an oblique fashion from the third rib fracture being more anterior to the seventh rib fracture more posterolateral. In addition, there are posterior left fifth, sixth, and seventh rib fractures. No right-sided rib fractures are seen. Small left-sided pneumothorax is noted. There is subcutaneous emphysema on the left side. Thoracic aorta is normal in caliber. There are moderate coronary calcifications. Visualized liver parenchyma shows no focal abnormalities. There is no defined spleen seen. There is w hat appear to be some residual splenules. Patient may have undergone a previous splenectomy. There are arthritic changes of the thoracic spine. IMPRESSION: 1. Multiple left-sided rib fractures as discussed above with several segmental fractures. This would constitute a flail chest. There is subcutaneous emphysema present in addition to the tiny pneumothor ax. Minimal pleural fluid is seen. 2. Probable previous splenectomy. There appear to be some small residual splenules present. Report in agreement with the preliminary report issued by [facility]. POS: [facility] [place]
[2020-06-21] MEDS: traMADol HCl 50 MG TAB PO SCH ×3 (10:35→18:16)
[2020-06-21] MEDS: Ibuprofen 200 MG TAB PO SCH ×3 (10:35→21:50)
[2020-06-21] MEDS: Acetaminophen 500 MG TAB PO SCH ×3 (10:35→18:16)
[2020-06-21] MEDS: Senokot S 8.6-50 MG TAB PO SCH ×2 (10:38→20:34)
[2020-06-21] MEDS: Famotidine 20 MG TAB PO SCH ×2 (10:38→20:30)
[2020-06-21] MEDS: Gabapentin 100 MG CAP PO SCH ×3 (10:39→20:30)
[2020-06-21] MEDS: Polyethylene Glycol 3350 17 GM Packet PO SCH (10:40)
[2020-06-21 18:21] LABS: SARS-CoV-2 MS2 Positive; SARS-CoV-2 N Gene Negative; SARS-CoV-2 S Gene Negative; SARS-CoV-2 by NAA Not Detected (NotDetected); SARS-CoV-2 orf1ab Negative
[2020-06-21] MEDS: Pregabalin 50 MG CAP PO SCH (20:31)
--- NOTE | 2020-06-21 21:06 | PRG ---
DATE OF SERVICE: 06/21/2020 SUBJECTIVE: The patient was seen during morning rounds with Dr. Ramirez. The patient is awake, alert, in no distress, sitting up in bed. The patient is able to pull 2500 on his incentive spirometer. The patient is able to cough deeply without pain. The patient's pain was well controlled at this time. The patient sustained a mechanical fall last night in which he had left-sided rib fractures 3 through 7 and a small left hemopneumothorax. The patient's Coumadin has been held due to this small hemo. The patient is tolerating a diet. OBJECTIVE: VITAL SIGNS: Temperature 97.3, pulse 89, respirations 20, SpO2 of 97% on room air, and blood pressure 107/87. GENERAL: Well-appearing elderly male, awake, alert, in no distress. RESPIRATORY: Good inspiratory and expiratory effort. Respirations are even and nonlabored. CARDIAC: Regular rate and regular rhythm. ABDOMEN: Soft, nontender, nondistended. EXTREMITIES: Moves all extremities, neurovascularly intact x4. NEUROLOGIC: No focal deficits. GCS 15. LABORATORY DATA: No new labs to evaluate today. ASSESSMENT: 1. Status post mechanical fall from standing, on Coumadin. 2. Left-sided rib fractures 3 through 7. 3. Left small hemopneumothorax, stable. 4. Acute traumatic pain secondary to injuries as above. 5. History of congestive heart failure. 6. Parkinson's. 7. Mechanical aortic valve replacement. 8. Depression. 9. Atrial flutter, status post ablation and cardioversion. 10. Obstructive sleep apnea, BiPAP at night. 11. Hypertension. 12. Osteoarthritis. PLAN: Continue supportive care and pain regimen. Continue aggressive pulmonary toilet. Continue physical and occupational therapy. Continue diet as tolerated. We will repeat a chest x-ray in the morning. If stable, we will restart the patient's Coumadin and likely discharge home. The patient will need a followup chest x-ray in 2 weeks. The patient was examined by Dr. Ramirez during morning rounds. The plan was discussed with the patient who agrees. Job ID: [id number]
[2020-06-22] MEDS: traMADol HCl 50 MG TAB PO SCH ×3 (00:33→12:52)
[2020-06-22] MEDS: Acetaminophen 500 MG TAB PO SCH ×3 (00:33→12:51)
--- NOTE | 2020-06-22 02:23 | PRG ---
DATE OF SERVICE: 06/22/2020 SUBJECTIVE: The patient was seen this evening during rounds. He was lying in bed, resting comfortably and asleep with no signs of acute distress. He was on his home BiPAP. OBJECTIVE: VITAL SIGNS: Temperature 97.7, pulse 61, respirations 20, oxygen saturation 93% on his BiPAP, blood pressure 107/72. GENERAL: Well-appearing elderly male, lying in bed, resting comfortably and asleep with no signs of acute distress. PULMONARY: Equal chest rise and fall. No signs of acute respiratory distress. ASSESSMENT: 1. Status post mechanical fall from standing, on Coumadin. 2. Left 3 through 7 rib fractures. 3. Left hemopneumothorax. 4. History of mechanical aortic valve replacement; congestive heart failure; atrial flutter; Parkinson's; depression; obstructive sleep apnea, on bilevel positive airway pressure at home; hypertension; and osteoarthritis. PLAN: Continue current diet and pain regimen. Continue physical and occupational therapy. Start the patient's home metoprolol, Entresto with spironolactone. Continue to hold the patient's home Lasix. We will consider starting them tomorrow after re-evaluating his chemistry. Continue aggressive pulmonary hygiene. Chest x-ray in the morning. If stable, can start the patient's home Coumadin. Job ID: [id number]
[2020-06-22] MEDS: Ibuprofen 200 MG TAB PO SCH (05:28)
[2020-06-22 05:55] LABS: #Basophils 0.1 thou/uL (0.0-0.2); #Eosinphils 0.2 thou/uL (0.0-0.7); #Lymphocytes 3.3 thou/uL (1.20-3.40); #Monocytes 1.4 thou/uL (0.11-0.59); #Neutrophils 5.7 thou/uL (1.40-6.50); %Basophils 0.7 % (0.0-1.0); %Eosinophils 1.8 % (0.0-10.0); %Lymphocytes 30.8 % (21.0-51.0); %Monocytes 13.2 % (0.0-10.0); %Neutrophils 53.4 % (42.0-75.0); Hemoglobin 15.8 g/dL (14.0-18.0); Mean Corpuscular HGB CONC 32.2 g/dL (32.0-36.0); Mean Corpuscular Hemoglobin 31.6 pg (27.0-31.0); Mean Corpuscular Volume 98.1 fL (78.0-98.0); Platelet Count 229 thou/uL (130-400); RBC Distribution Width 13.3 % (11.5-14.5); White Blood Cell (WBC) Count 10.6 thou/uL (4.8-10.8)
[2020-06-22 06:03] LABS: INR-International Normal Ratio 2.5; PTT 44.9 sec (22.9-36.1); Prothrombin Time 27.6 sec (12.0-14.7)
[2020-06-22 06:17] LABS: Anion Gap 15 mmol/L (10-20); BUN (Urea Nitrogen) 45 mg/dL (8.4-25.7); Calc. Creatinine Clearance 65 mL/min (70-130); Calcium 9.6 mg/dL (7.8-10.44); Carbon Dioxide 24 mmol/L (23-31); Chloride 105 mmol/L (98-107); Estimated GFR-MDRD 52; Glucose 106 mg/dL (83-110); Magnesium 2.3 mg/dL (1.6-2.6); Phosphorus 4.3 mg/dL (2.3-4.7); Potassium 5.1 mmol/L (3.5-5.1); Sodium 139 mmol/L (136-145)
[2020-06-22] MEDS ORDERED: FLU VACC QS2020-21(65YR UP)/PF 240 MCG/0.7 ML SYRINGE IM ONE (09:00)
[2020-06-22] MEDS ORDERED: Metoprolol Tartrate 50 MG TAB PO SCH (09:00)
[2020-06-22] MEDS ORDERED: Atorvastatin Calcium 20 MG TAB PO SCH (09:00)
[2020-06-22] MEDS ORDERED: Sacubitril 49 MG/Valsartan 51 MG TABLET PO SCH (09:00)
--- NOTE | 2020-06-22 09:08 | RAD ---
PORTABLE CHEST: Date: 06/22/2020 HISTORY: Pneumonia follow-up. COMPARISON: Chest film of 03/31/[address] of 06/21/2020. FINDINGS/IMPRESSION: Cardiomegaly with postop sternotomy changed. Multiple left-sided rib fractures with mild subcutaneous emphysema is better appreciated on chest CT. No evidence of significant pneumothorax identified. No evidence of acute interval change from the CT of 06/21/2020. POS: [facility]
[2020-06-22] MEDS: Senokot S 8.6-50 MG TAB PO SCH (09:19)
[2020-06-22] MEDS: Gabapentin 100 MG CAP PO SCH (09:19)
[2020-06-22] MEDS: Pregabalin 50 MG CAP PO SCH (09:20)
[2020-06-22] MEDS: Polyethylene Glycol 3350 17 GM Packet PO SCH (09:21)
[2020-06-22] MEDS: Famotidine 20 MG TAB PO SCH (09:21)
[2020-06-22 15:58] VITALS: BP 95/63; TEMP 98
[2020-06-22] MEDS ORDERED: Spironolactone 25 MG TAB PO SCH (21:00)
--- NOTE | 2020-06-23 14:25 | DIS ---
DATE OF ADMISSION: 06/21/2020 DATE OF DISCHARGE: 06/22/2020 ATTENDING: Dr. Teresa. DISCHARGE ATTENDING: Dr. Ramirez. CONSULTS: None. PROCEDURES: None. PRIMARY DIAGNOSES: Status post fall from standing on Coumadin, left-sided rib fractures 3 through 7, left small hemopneumothorax, acute traumatic pain secondary to above injuries. SECONDARY DIAGNOSES: History of congestive heart failure, Parkinson's, mechanical aortic valve replacement, depression, atrial flutter status post ablation and cardioversion, obstructive sleep apnea with BiPAP use nightly, hypertension, and osteoarthritis. DISCHARGE MEDICATIONS: 1. Flexeril 5 mg p.o. 3 times a day for muscle spasms. 2. Gabapentin 100 mg p.o. 3 times a day. 3. Tramadol 50 mg p.o. q.6 hours p.r.n. pain, #30 with one refill. 4. Acetaminophen 1000 mg p.o. q.6 hours. 5. Atorvastatin 20 mg p.o. daily. 6. Lasix 20 mg p.o. daily. 7. Metoprolol 25 mg p.o. b.i.d. 8. Multivitamin daily. 9. Fish oil daily. 10. MiraLAX as needed daily. 11. Lyrica 100 mg p.o. b.i.d. 12. Entresto 49 mg/51 mg tab p.o. b.i.d. 13. Senokot as needed. 14. Sertraline 50 mg p.o. daily. 15. Spironolactone 25 mg p.o. at bedtime. 16. Testosterone 5 g pack applied transdermal daily. 17. CoQ10 daily. 18. Warfarin 7.5 mg p.o. daily 5 days a week and 10 mg daily 2 days a week. No discontinued medications. HISTORY OF PRESENT ILLNESS AND HOSPITAL COURSE: This is a 75-year-old gentleman who presented to the emergency room via family who reports he had lost his balance while opening the door to the bathroom, causing him to fall and hit the posterior aspect of his chest against the railing of the bathroom. It then caused the patient to fall down. He denied hitting his head or losing any consciousness. The patient denied any neck or back pain. The patient was evaluated in the emergency room and found to have left rib fractures and a small left hemopneumo. The patient did initially require oxygen. The patient's Coumadin was held due to the hemothorax. The patient's pain was well controlled during his hospital stay. The patient was able to use his incentive spirometer without any difficulties. The patient was able to ambulate without any difficulties. The patient received a chest x-ray the next morning, which showed a stable chest x-ray, and no pneumohemothorax was able to be seen on the chest x-ray as previously seen on the CT scan the day before. The patient's Coumadin was then restarted after a stable chest x-ray. The patient had an unexpected recovery allowing him to be discharged sooner than expected. The patient has several family members at home to assist him with his needs. On the day of discharge, the patient was examined by Dr. Ramirez. His exam was unremarkable including cardiopulmonary and GI exam. His vital signs were stable on the day of discharge and he was not requiring any oxygen. The patient denied any significant pain or shortness of breath. The patient was deemed stable for discharge home with family. DISPOSITION: Stable. DISCHARGE INSTRUCTIONS: 1. Location, location home with home health PT. 2. Diet: Heart healthy diet. 3. Activity: As tolerated. The patient was instructed to ambulate frequently to avoid any blood clots, the patient was instructed to continue his incentive spirometer every hour while awake. 4. Followup: With primary care physician, Dr. Cruz in 2 weeks with a chest x-ray. If unable to follow up or get a chest x-ray with Dr. Cruz, the patient is to follow up with Trauma Clinic. The patient voices understanding. The [employer] website was accessed and appropriate. Job ID: [id number]
== END 2020-06-22 15:18 | disposition home or self-care (01) | DRG 200 ==
LOC: ERS 01:18 → T4-A 04:20
PROVIDERS: ADMIT Surgery; ATTEND Surgery
DX: S27.0XXA Traumatic pneumothorax, initial encounter (principal); S22.42XA Multiple fractures of ribs, left side, initial encounter for closed fracture; E78.00 Pure hypercholesterolemia, unspecified; I50.9 Heart failure, unspecified; I11.0 Hypertensive heart disease with heart failure; F41.9 Anxiety disorder, unspecified; F32.9 Major depressive disorder, single episode, unspecified; Z88.0 Allergy status to penicillin; Z95.4 Presence of other heart-valve replacement; Z79.01 Long term (current) use of anticoagulants; Z79.899 Other long term (current) drug therapy; G20 Parkinson's disease; M19.90 Unspecified osteoarthritis, unspecified site; G47.33 Obstructive sleep apnea (adult) (pediatric); Z20.828 Contact with and (suspected) exposure to other viral communicable diseases
CPT/HCPCS: 36415; 70450; 71045; 71250; 72125; 80048; 80053; 83735; 84100; 85025; 85610; 85730; 87635; 90471; 90662; 94760; 96374; 96375; 96376; G0008; J1885; J2270; J3010; U0003

== ENCOUNTER 2021-02-21 05:57 | Day surgery (SDC) | payer MEDICARE, OTHER ==
[2021-02-20 11:51] VITALS: BMI 30.7
[2021-02-21] MEDS ORDERED: Famotidine/PF 20 mg/2ml Vial ONE (06:23)
[2021-02-21] MEDS ORDERED: Heparin 10,000 UNITS/ 10 ML VIAL ONE (06:42)
[2021-02-21] MEDS ORDERED: Lidocaine 1% (PF) 30 ML VIAL ONE ×2 (06:43→06:52)
[2021-02-21] MEDS ORDERED: Levofloxacin 500 mg/D5W 100 ml Premix Bag ONE (06:52)
[2021-02-21] MEDS ORDERED: Clindamycin/D5W 600 mg/50 ml Premix Bag ONE (06:52)
[2021-02-21] MEDS ORDERED: Fentanyl 100 MCG/2 ML VIAL ONE (07:06)
[2021-02-21] MEDS ORDERED: Midazolam HCl 2 mg/2 ml Vial ONE (07:07)
[2021-02-21] MEDS ORDERED: Propofol 1,000 MG/100 ML VIAL IV ONE (07:07)
[2021-02-21] MEDS ORDERED: Metoclopramide HCl 10 MG/2 ML VIAL ONE (08:05)
[2021-02-21] MEDS ORDERED: PHENYLEPHRINE-NS 100 MCG/ML 10 ML SYRINGE ONE ×2 (08:05→10:30)
[2021-02-21] MEDS ORDERED: ePHEDrine Sulfate 50 MG/10 ML VIAL ONE (08:05)
[2021-02-21] MEDS ORDERED: Lidocaine 1% PF 5 ML VIAL ONE (08:05)
[2021-02-21] MEDS ORDERED: Ondansetron PF 4 MG/2 ML Vial ONE (08:05)
[2021-02-21] MEDS ORDERED: Propofol 500 MG/50 ML VIAL ONE (10:30)
[2021-02-21] MEDS ORDERED: DOPamine 400 MG/D5W 250 ML 250 ML ONE (10:41)
[2021-02-21] MEDS ORDERED: HYDROcodone/Acetaminophen 5/325 mg Tablet ONE (14:34)
== END 2021-02-21 15:49 | disposition home or self-care (01) ==
LOC: CCL 05:57
PROVIDERS: ATTEND Internal Medicine Cardiovascular Disease
PROC: 0JH609Z Insertion of Cardiac Resynchronization Defibrillator Pulse Generator into Chest Subcutaneous Tissue and Fascia, Open Approach (ICD-10-PCS; principal; 2021-02-21)
PROC: 02HL3KZ Insertion of Defibrillator Lead into Left Ventricle, Percutaneous Approach (ICD-10-PCS; 2021-02-21)
PROC: 02H63KZ Insertion of Defibrillator Lead into Right Atrium, Percutaneous Approach (ICD-10-PCS; 2021-02-21)
PROC: 02HK3KZ Insertion of Defibrillator Lead into Right Ventricle, Percutaneous Approach (ICD-10-PCS; 2021-02-21)
PROC: 02583ZZ Destruction of Conduction Mechanism, Percutaneous Approach (ICD-10-PCS; 2021-02-21)
PROC: 02K83ZZ Map Conduction Mechanism, Percutaneous Approach (ICD-10-PCS; 2021-02-21)
DX: I11.0 Hypertensive heart disease with heart failure (principal); I50.22 Chronic systolic (congestive) heart failure; I42.8 Other cardiomyopathies; I48.19 Other persistent atrial fibrillation; I49.3 Ventricular premature depolarization; I25.10 Atherosclerotic heart disease of native coronary artery without angina pectoris; E78.5 Hyperlipidemia, unspecified; G47.33 Obstructive sleep apnea (adult) (pediatric); I48.3 Typical atrial flutter; I44.7 Left bundle-branch block, unspecified; Z86.73 Personal history of transient ischemic attack (TIA), and cerebral infarction without residual deficits; Z79.01 Long term (current) use of anticoagulants; Z79.899 Other long term (current) drug therapy; Z88.0 Allergy status to penicillin; Z95.2 Presence of prosthetic heart valve
CPT/HCPCS: 33225; 33249; 71045; 76942; 93005; 93010; 93613; 93623; 93650; C1732; C1769; J1265; J1644; J1956; J2001; J2250; J2405; J2704; J2765; J3010; J3370; J3490; S0028

== ENCOUNTER 2021-05-09 11:54 | Emergency (ER) | payer MEDICARE, OTHER ==
[2021-05-09 12:35] LABS: #Basophils 0.1 thou/uL (0.0-0.2); #Eosinphils 0.3 thou/uL (0.0-0.7); #Lymphocytes 2.8 thou/uL (1.20-3.40); #Monocytes 1.1 thou/uL (0.11-0.59); #Neutrophils 5.1 thou/uL (1.40-6.50); %Basophils 0.9 % (0.0-1.0); %Eosinophils 3.3 % (0.0-10.0); %Lymphocytes 29.8 % (21.0-51.0); %Monocytes 11.4 % (0.0-10.0); %Neutrophils 54.7 % (42.0-75.0); Hemoglobin 15.5 g/dL (14.0-18.0); Mean Corpuscular HGB CONC 33.5 g/dL (32.0-36.0); Mean Corpuscular Hemoglobin 32.4 pg (27.0-31.0); Mean Corpuscular Volume 96.8 fL (78.0-98.0); Mean Platelet Volume 8.8 fL (7.4-10.4); Platelet Count 222 thou/uL (130-400); RBC Distribution Width 12.7 % (11.5-14.5); Red Blood Cell (RBC) Count 4.79 mill/uL (4.70-6.10); White Blood Cell (WBC) Count 9.2 thou/uL (4.8-10.8)
[2021-05-09 12:53] LABS: ALT (SGPT) 23 U/L (8-55); AST (SGOT) 23 U/L (5-34); Alkaline Phosphatase 91 U/L (40-110); Anion Gap 13 mmol/L (10-20); BUN (Urea Nitrogen) 28 mg/dL (8.4-25.7); Bilirubin, Total 0.9 mg/dL (0.2-1.2); Calc. Creatinine Clearance 0 mL/min (70-130); Calcium 9.2 mg/dL (7.8-10.44); Carbon Dioxide 26 mmol/L (23-31); Chloride 105 mmol/L (98-107); Globulin 3.2 g/dL (2.4-3.5); Glucose 98 mg/dL (83-110); Potassium 3.6 mmol/L (3.5-5.1); Protein, Total 7.2 g/dL (5.8-8.1); Sodium 140 mmol/L (136-145)
[2021-05-09 13:17] LABS: Magnesium 2.2 mg/dL (1.6-2.6)
[2021-05-09 13:41] LABS: CKMB 3.3 ng/mL (0-6.6)
[2021-05-09 14:36] LABS: Bilirubin Negative (Negative); Blood, Urine Negative (Negative); Clarity Clear (Clear); Glucose, Urine (Dipstick) Normal (Negative); Ketone, Urine Negative (Negative); Leukocyte Negative Leu/uL (Negative); Nitrite Negative (Negative); Protein, Urine (Dipstick) Negative (Neg-Trace); Specific Gravity, Urine 1.014 (1.002-1.036); Urobilinogen Normal mg/dL (Less than 2)
[2021-05-09 15:39] LABS: SARS-CoV-2 NAA Rapid Test Not Detected (NotDetected)
== END 2021-05-09 15:45 | disposition home or self-care (01) ==
LOC: ERS 11:54
DX: E86.0 Dehydration (principal); I11.0 Hypertensive heart disease with heart failure; I50.9 Heart failure, unspecified; Z20.822 Contact with and (suspected) exposure to COVID-19; E78.5 Hyperlipidemia, unspecified; E78.00 Pure hypercholesterolemia, unspecified; I48.91 Unspecified atrial fibrillation; Z86.73 Personal history of transient ischemic attack (TIA), and cerebral infarction without residual deficits; Z86.711 Personal history of pulmonary embolism; Z79.899 Other long term (current) drug therapy; Z79.01 Long term (current) use of anticoagulants
CPT/HCPCS: 71045; 80053; 81003; 82553; 83605; 83735; 83880; 84484; 85025; 87040; 87086; 93005; U0002; 36415